=== PATIENT | male | born 1970 | race African-American/Black ===

== ENCOUNTER 2018-10-22 09:39 | Inpatient (IN) | payer OTHER ==
[2018-10-22 10:21] VITALS: BMI 32.1
--- NOTE | 2018-10-22 10:51 | HP ---
COWS - Scale Resting Pulse: 0= [place] 80 or Below Sweatin= Beads of Sweat on Face Restless Observation: 1= Difficult to Sit Still Pupil Size: 1= Pupils >than Normal Bone or Joint Aches: 2= Severe Diffuse Aches Runny Nose/ Eye Tearin= Runny Nose/Eyes GI Upset > 30mins: 1= Stomach Cramp Tremor Observation: 4= Gross Tremor/Twitching Yawning Observation: 1= 1-2x During Session Anxiety or Irritability: 2=Irritable/Anxious Goose Flesh Skin: 0=Smooth Skin (patient is appropriate for opioid detox) COWS Score: 17 CIWA Score - Admission Criteria OASAS Guidelines: Admission for Medically Managed Detox: Requires at least one of the followin. CIWA greater than 12 2. Seizures within the past 24 hours 3. Delirium tremens within the past 24 hours 4. Hallucinations within the past 24 hours 5. Acute intervention needed for co occurring medical disorder 6. Acute intervention needed for co occurring psychiatric disorder 7. Severe withdrawal that cannot be handled at a lower level of care (continued vomiting, continued diarrhea, abnormal vital signs) requiring intravenous medication and/or fluids 8. Admission ROS [facility] Chief Complaint: " I'm here to get help and start a new life. I want to sotp using drugs." Allergies/Adverse Reactions: Allergies Allergy/AdvReac Type Severity Reaction Status Date / Time No Known Allergies Allergy Verified 10/22/18 10:14 History of Present Illness: 58 year black male with history of opioid dependence. He has attempted detox and rehab at [facility] last year with very little time abstinent thereafter. He is currently intranasally about 5 bags per day. He last used yesterday night. He denies any other substance use. He denies smoking currently and stopped 20 years ago. He has no significant past medical history. PSurg Hx: None All: None Patient has no legal issues pending. Patient is domiciled in the [place]. Exam Limitations: No Limitations - Ebola screening Have you traveled outside of the country in the last 21 days: No Have you had contact with anyone from an Ebola affected area: No Have you been sick,other than usual withdrawal symptoms: No Do you have a fever: No - Review of Systems Constitutional: Chills, Diaphoresis, Loss of Appetite EENT: reports: Tearing, Nose Congestion Respiratory: reports: No Symptoms reported Cardiac: reports: No Symptoms Reported GI: reports: Nausea, Abdominal cramping : reports: No Symptoms Reported Musculoskeletal: reports: Muscle Pain Integumentary: reports: No Symptoms Reported Neuro: reports: Headache, Tremors Endocrine: reports: No Symptoms Reported Hematology: reports: No Symptoms Reported Psychiatric: reports: Judgement Intact, Mood/Affect Appropiate, Orientated x3 Other Systems: Reviewed and Negative Patient History - Patient Medical History Hx Anemia: No Hx Asthma: No Hx Chronic Obstructive Pulmonary Disease (COPD): No Hx Cancer: No Hx Cardiac Disorders: No Hx Congestive Heart Failure: No Hx Hypertension: No Hx Hypercholesterolemia: No Hx Pacemaker: No HX Cerebrovascular Accident: No Hx Seizures: No Hx Dementia: No Hx Diabetes: No Hx Gastrointestinal Disorders: No Hx Liver Disease: No Hx Genitourinary Disorders: No Hx Sexually Transmitted Disorders: No Hx Renal Disease (ESRD): No Hx Thyroid Disease: No Hx Human Immunodeficiency Virus (HIV): No Hx Hepatitis C: No Hx Depression: No Hx Suicide Attempt: No Hx Bipolar Disorder: No Hx Schizophrenia: No - Patient Surgical History Past Surgical History: No - PPD History Previous Implant?: Yes Documented Results: Negative w/o proof Implanted On Prior [facility] Admission?: No - Reproductive History Patient is a Female of Child Bearing Age (11 -55 yrs old): No - Smoking Cessation Smoking history: Former smoker Have you smoked in the past 12 months: No Hx Chewing Tobacco Use: No Initiated information on smoking cessation: No - Substance & Tx. History Hx Alcohol Use: No Hx Substance Use: Yes Substance Use Type: Heroin Hx Substance Use Treatment: Yes ([facility]) - Substances abused Heroin Substance route: Inhalation Frequency: Daily Amount used: 5 bags Age of first use: 26 Date of last use: 10/21/18 Family Disease History - Family Disease History Family Disease History: Other: Father (, gangrene), Mother (, breast cancer), Brother (13 brothers, 3 HCV 2 of them, Pneumonia), Sister (1 sister, cancer unknown), Son (1 son alive and well), Daughter (2 daughters alive and well) Admission Physical Exam BHS - Vital Signs Vital Signs: Vital Signs - 24 hr 10/22/18 10:14 Temperature 97.6 F Pulse Rate 58 L Respiratory 18 Rate Blood Pressure 155/92 - Physical General Appearance: Yes: Mild Distress HEENTM: Yes: EOMI, Hearing grossly Normal, Normocephalic, Normal Voice, ISMA, Pharynx Normal Respiratory: Yes: Chest Non-Tender, Lungs Clear, Normal Breath Sounds, No Accessory Muscle Use Neck: Yes: No masses,lesions,Nodules, Supple, Trachea in good position Breast: Yes: Within Normal Limits Cardiology: Yes: Regular Rhythm, Regular Rate, S1, S2 Abdominal: Yes: Increased Bowel Sounds, Protuberent Genitourinary: Yes: Within Normal Limits Back: Yes: Within Normal Limits, Normal Inspection Musculoskeletal: Yes: Within Normal Limits, full range of Motion, Gait Steady Extremities: Yes: Normal Capillary Refill, Normal Inspection, Normal Range of Motion, Non-Tender Neurological: Yes: 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, Fully Oriented, Alert, Motor Strength 5/5, Normal Mood/Affect Integumentary: Yes: Normal Color, Warm Lymphatic: Yes: Within Normal Limits Cleared for Admission S - Detox or Rehab [facility] Level of Care: Medically Managed Detox Regimen/Protocol: Methadone Screened but not Admitted - Documentation of Visit Screened but not Admitted: No Breathalyzer - Breathalyzer Breathalyzer: 0 Vital Signs - Vital Signs Vital signs refused: No Temperature: 97.6 F Temperature source: Oral Pulse Rate: 58 Respiratory Rate: 18 Blood Pressure: 155/92 BP Location: Left Arm Blood Pressure position: Sitting - Height Height: 6 ft 2 in - Weight Weight: 250 lb Weight measurement method: Standing scale - BMI Body Mass Index (BMI): 32.1 - Bowel Function Bowel Movement: No Urine Drug Screen - Test Device Lot number: [id number] Expiration date: 07/09/20 - Control Is test valid?: Yes - Results Drug screen NEGATIVE: No Urine drug screen results: MOP-Opiates Inpatient Rehab Admission - Rehab Decision to Admit Inpatient rehab admission?: No
[2018-10-22] MEDS ORDERED: MAGNESIUM CITRATE 300 ML BOTTLE PO PRN (10:58)
[2018-10-22] MEDS ORDERED: METHOCARBAMOL 500 MG TABLET PO PRN (10:58)
[2018-10-22] MEDS ORDERED: hydrOXYzine PAMOATE 25 MG CAPSULE (FP) PO PRN (10:58)
[2018-10-22] MEDS ORDERED: ACETAMINOPHEN 325 MG TABLET (FP) PO PRN ×2 (10:58)
[2018-10-22] MEDS ORDERED: MAG HYDROX/AL HYDROX/SIMETH 30 ML UNIT-DOSE CUP PO PRN (10:58)
[2018-10-22] MEDS ORDERED: MENTHOL/PHENOL 1 EACH UD MM PRN (10:58)
[2018-10-22] MEDS ORDERED: IBUPROFEN 400 MG TABLET (FP) PO PRN (10:58)
[2018-10-22] MEDS ORDERED: MAGNESIUM HYDROX 2400MG/30ML ORAL SUSPENSION 30 ML CUP PO PRN (10:58)
[2018-10-22] MEDS ORDERED: BISMUTH SUBSALICYLATE 524 MG/30 ML UD PO PRN (10:58)
[2018-10-22] MEDS ORDERED: METHADONE HCL 10 MG TABLET (FOR DETOX USE ONLY) PO ONE (12:00)
[2018-10-22] MEDS: cloNIDine HCL 0.1 MG TABLET PO PRN (12:24)
[2018-10-22 15:33] LABS: HEMATOCRIT 37.5 % (35.4-49); HEMOGLOBIN 12.1 GM/dL (11.7-16.9); MCH 29.3 pg (25.7-33.7); MCHC 32.2 g/dl (32.0-35.9); MEAN CELL VOLUME 91.1 fl (80-96); MEAN PLT VOLUME 9.7 fl (7.5-11.1); PLATELET COUNT 216 K/MM3 (134-434); RBC 4.12 M/mm3 (4.00-5.60); RDW 13.2 % (11.9-15.9); WHITE BLOOD COUNT 7.3 K/mm3 (4.0-10.0)
[2018-10-22 15:46] LABS: BILIRUBIN,TOTAL 0.5 mg/dL (0.2-1); BLOOD UREA NITROGEN 11.7 mg/dL (7-18); CALCIUM 9.4 mg/dL (8.5-10.1); CREATININE 0.8 mg/dL (0.55-1.3); POTASSIUM 4.2 mmol/L (3.5-5.1); TOT PROT 7.6 g/dl (6.4-8.2)
[2018-10-22] MEDS: THIAMINE HCL 100 MG TABLET (FP) PO SCH (22:32)
[2018-10-23] MEDS ORDERED: METHADONE HCL 10 MG TABLET (FOR DETOX USE ONLY) ONE (09:19)
[2018-10-23] MEDS ORDERED: METHADONE HCL 5 MG TABLET (FOR DETOX USE ONLY) ONE (09:19)
[2018-10-23] MEDS: PRENATAL VITAMINS W/ FOLIC ACID TABLET (FP) PO SCH (09:52)
[2018-10-23] MEDS ORDERED: METHADONE (DETOX) 20 MG, METHADONE (DETOX) 5 MG PO ONE (10:00)
--- NOTE | 2018-10-23 14:13 | PN ---
BHS COWS - Scale Resting Pulse: 0= [place] 80 or Below Sweatin= Chills/Flushing Restless Observation: 0= Sits Still Pupil Size: 1= Pupils >than Normal Bone or Joint Aches: 2= Severe Diffuse Aches Runny Nose/ Eye Tearin= Nasal Congestion GI Upset > 30mins: 2= Nausea/Diarrhea Tremor Observation of Outstretched Hands: 2= Slight Tremor Visible Yawning Observation: 1= 1-2x During Session Anxiety or Irritability: 2=Irritable/Anxious Goose Flesh Skin: 3=Piloerection COWS Score: 15 BHS Progress Note (SOAP) Subjective: 48 years old male admitted on 10/22/18 for acute opiate withdrawal sx management doing well with methadone detox protocol reporting that long history of diabetes II treated with metformin 200 mg po bid from [place] [facility] under[employer] mortgage loan call [facility] [phone] the pharmacist can not find the name match with date of hold metformin 200 mg po at this time continue bgm with insulin coverage change to no concentrated sugar diet discontinue regular diet Objective: 10/23/18 14:15 Vital Signs Temperature 97.6 F 10/23/18 13:32 Pulse Rate 77 10/23/18 13:32 Respiratory Rate 18 10/23/18 13:32 Blood Pressure 137/96 10/23/18 13:32 O2 Sat by Pulse Oximetry (%) Laboratory Last Values WBC 7.3 K/mm3 (4.0-10.0) 10/22/18 11:15 RBC 4.12 M/mm3 (4.00-5.60) 10/22/18 11:15 Hgb 12.1 GM/dL (11.7-16.9) 10/22/18 11:15 Hct 37.5 % (35.4-49) 10/22/18 11:15 MCV 91.1 fl (80-96) 10/22/18 11:15 MCH 29.3 pg (25.7-33.7) 10/22/18 11:15 MCHC 32.2 g/dl (32.0-35.9) 10/22/18 11:15 RDW 13.2 % (11.9-15.9) 10/22/18 11:15 Plt Count 216 K/MM3 (134-434) 10/22/18 11:15 MPV 9.7 fl (7.5-11.1) 10/22/18 11:15 Sodium 138 mmol/L (136-145) 10/22/18 11:15 Potassium 4.2 mmol/L (3.5-5.1) 10/22/18 11:15 Chloride 101 mmol/L (98-107) 10/22/18 11:15 Carbon Dioxide 31 mmol/L (21-32) 10/22/18 11:15 Anion Gap 6 MMOL/L (8-16) L 10/22/18 11:15 BUN 11.7 mg/dL (7-18) 10/22/18 11:15 Creatinine 0.8 mg/dL (0.55-1.3) 10/22/18 11:15 Est GFR (CKD-EPI)AfAm 123.29 10/22/18 11:15 Est GFR (CKD-EPI)NonAf 106.38 10/22/18 11:15 Random Glucose 164 mg/dL (74-106) H 10/22/18 11:15 Calcium 9.4 mg/dL (8.5-10.1) 10/22/18 11:15 Total Bilirubin 0.5 mg/dL (0.2-1) 10/22/18 11:15 AST 17 U/L (15-37) 10/22/18 11:15 ALT 37 U/L (13-61) 10/22/18 11:15 Alkaline Phosphatase 91 U/L (45-117) 10/22/18 11:15 Total Protein 7.6 g/dl (6.4-8.2) 10/22/18 11:15 Albumin 4.0 g/dl (3.4-5.0) 10/22/18 11:15 RPR Titer Nonreactive (NONREACTIVE) 10/22/18 11:15 lab noted fasting glucose patient is alert oriented x 3 speech clearly coherently steady gait encourage weight loss discuss importance of dietary compliance Assessment: 10/23/18 14:17 opiate withdrawal sx Plan: continue methadone detox regimen discuss 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 treatment program
[2018-10-23] MEDS ORDERED: INSULIN SLIDING SCALE (NOVOLOG) 1 VIAL SQ SCH (16:30)
[2018-10-23] MEDS: THIAMINE HCL 100 MG TABLET (FP) PO SCH (22:38)
[2018-10-24] MEDS ORDERED: METHADONE HCL 10 MG TABLET (FOR DETOX USE ONLY) PO ONE (10:00)
[2018-10-24] MEDS: PRENATAL VITAMINS W/ FOLIC ACID TABLET (FP) PO SCH (10:03)
--- NOTE | 2018-10-24 16:56 | PN ---
S COWS - Scale Resting Pulse: 0= [place] 80 or Below Sweatin= Chills/Flushing Restless Observation: 0= Sits Still Pupil Size: 1= Pupils >than Normal Bone or Joint Aches: 2= Severe Diffuse Aches Runny Nose/ Eye Tearin= Nasal Congestion GI Upset > 30mins: 1= Stomach Cramp Tremor Observation of Outstretched Hands: 2= Slight Tremor Visible Yawning Observation: 1= 1-2x During Session Anxiety or Irritability: 2=Irritable/Anxious Goose Flesh Skin: 3=Piloerection COWS Score: 14 S Progress Note (SOAP) Subjective: body aches sweating tremor anxiousness modify methadone detox regimen to meet the needs of patient's withdrawal sx Objective: 10/24/18 16:58 Vital Signs Temperature 99.0 F 10/24/18 13:46 Pulse Rate 63 10/24/18 13:46 Respiratory Rate 18 10/24/18 13:46 Blood Pressure 137/88 10/24/18 13:46 O2 Sat by Pulse Oximetry (%) Laboratory Last Values WBC 7.3 K/mm3 (4.0-10.0) 10/22/18 11:15 RBC 4.12 M/mm3 (4.00-5.60) 10/22/18 11:15 Hgb 12.1 GM/dL (11.7-16.9) 10/22/18 11:15 Hct 37.5 % (35.4-49) 10/22/18 11:15 MCV 91.1 fl (80-96) 10/22/18 11:15 MCH 29.3 pg (25.7-33.7) 10/22/18 11:15 MCHC 32.2 g/dl (32.0-35.9) 10/22/18 11:15 RDW 13.2 % (11.9-15.9) 10/22/18 11:15 Plt Count 216 K/MM3 (134-434) 10/22/18 11:15 MPV 9.7 fl (7.5-11.1) 10/22/18 11:15 Sodium 138 mmol/L (136-145) 10/22/18 11:15 Potassium 4.2 mmol/L (3.5-5.1) 10/22/18 11:15 Chloride 101 mmol/L (98-107) 10/22/18 11:15 Carbon Dioxide 31 mmol/L (21-32) 10/22/18 11:15 Anion Gap 6 MMOL/L (8-16) L 10/22/18 11:15 BUN 11.7 mg/dL (7-18) 10/22/18 11:15 Creatinine 0.8 mg/dL (0.55-1.3) 10/22/18 11:15 Est GFR (CKD-EPI)AfAm 123.29 10/22/18 11:15 Est GFR (CKD-EPI)NonAf 106.38 10/22/18 11:15 POC Glucometer 95 UNITS (80-120) 10/24/18 16:25 Random Glucose 164 mg/dL (74-106) H 10/22/18 11:15 Fasting Glucose 98 mg/dL (74-106) 10/24/18 07:00 Calcium 9.4 mg/dL (8.5-10.1) 10/22/18 11:15d Total Bilirubin 0.5 mg/dL (0.2-1) 10/22/18 11:15 AST 17 U/L (15-37) 10/22/18 11:15 ALT 37 U/L (13-61) 10/22/18 11:15 Alkaline Phosphatase 91 U/L (45-117) 10/22/18 11:15 Total Protein 7.6 g/dl (6.4-8.2) 10/22/18 11:15 Albumin 4.0 g/dl (3.4-5.0) 10/22/18 11:15 RPR Titer Nonreactive (NONREACTIVE) 10/22/18 11:15 lab noted Assessment: 10/24/18 16:58 opiate withdrawal sx alert oriented x 3 no dizziness no shortness of breath steady gait Plan: continue methadone detox regimen as per modified
[2018-10-24] MEDS: THIAMINE HCL 100 MG TABLET (FP) PO SCH (22:45)
[2018-10-24] MEDS: cloNIDine HCL 0.1 MG TABLET PO PRN (22:45)
[2018-10-25] MEDS ORDERED: METHADONE HCL 10 MG TABLET (FOR DETOX USE ONLY) ONE (08:49)
[2018-10-25] MEDS ORDERED: METHADONE HCL 5 MG TABLET (FOR DETOX USE ONLY) ONE (08:49)
[2018-10-25] MEDS ORDERED: METHADONE (DETOX) 10 MG, METHADONE (DETOX) 5 MG PO ONE ×2 (10:00)
[2018-10-25] MEDS: PRENATAL VITAMINS W/ FOLIC ACID TABLET (FP) PO SCH (10:09)
--- NOTE | 2018-10-25 15:38 | PN ---
BHS COWS - Scale Resting Pulse: 0= [place] 80 or Below Sweatin= Chills/Flushing Restless Observation: 1= Difficult to Sit Still Pupil Size: 0= Normal to Room Light Bone or Joint Aches: 2= Severe Diffuse Aches Runny Nose/ Eye Tearin= None GI Upset > 30mins: 0= None Tremor Observation of Outstretched Hands: 2= Slight Tremor Visible Yawning Observation: 1= 1-2x During Session Anxiety or Irritability: 2=Irritable/Anxious Goose Flesh Skin: 0=Smooth Skin COWS Score: 9 BHS Progress Note (SOAP) Subjective: Body Aches, Sweating, Tremors, Anxious. Patient reports That Current withdrawal / Detox Symptoms in Are Beginning To Subside in Severity. Objective: PATIENT A & O X 3. IN NO ACUTE DISTRESS. 10/25/18 15:36 Vital Signs Temperature 97.2 F L 10/25/18 14:31 Pulse Rate 64 10/25/18 14:31 Respiratory Rate 18 10/25/18 14:31 Blood Pressure 137/92 10/25/18 14:31 O2 Sat by Pulse Oximetry (%) Laboratory Tests 10/22/18 10/22/18 10/22/18 11:15 11:15 11:15 WBC 7.3 RBC 4.12 Hgb 12.1 Hct 37.5 MCV 91.1 MCH 29.3 MCHC 32.2 RDW 13.2 Plt Count 216 MPV 9.7 Sodium 138 Potassium 4.2 Chloride 101 Carbon Dioxide 31 Anion Gap 6 L BUN 11.7 Creatinine 0.8 Est GFR (CKD-EPI)AfAm 123.29 Est GFR (CKD-EPI)NonAf 106.38 POC Glucometer Random Glucose 164 H Fasting Glucose Calcium 9.4 Total Bilirubin 0.5 AST 17 ALT 37 Alkaline Phosphatase 91 Total Protein 7.6 Albumin 4.0 RPR Titer Nonreactive TB (QFT) Incubation TB Test (QFT) Nil TB Test (QFT) Mitogen TB Test (QFT) Antigen TB Test (QFT) TB Positive Criteria 10/22/18 10/23/18 10/23/18 11:15 16:34 20:40 WBC RBC Hgb Hct MCV MCH MCHC RDW Plt Count MPV Sodium Potassium Chloride Carbon Dioxide Anion Gap BUN Creatinine Est GFR (CKD-EPI)AfAm Est GFR (CKD-EPI)NonAf POC Glucometer 122 117 Random Glucose Fasting Glucose Calcium Total Bilirubin AST ALT Alkaline Phosphatase Total Protein Albumin RPR Titer TB (QFT) Incubation TB Test (QFT) Nil 0.11 TB Test (QFT) Mitogen >10.00 TB Test (QFT) Antigen 0.09 TB Test (QFT) Negative TB Positive Criteria 10/24/18 10/24/18 10/24/18 07:00 07:07 16:25 WBC RBC Hgb Hct MCV MCH MCHC RDW Plt Count MPV Sodium Potassium Chloride Carbon Dioxide Anion Gap BUN Creatinine Est GFR (CKD-EPI)AfAm Est GFR (CKD-EPI)NonAf POC Glucometer 119 95 Random Glucose Fasting Glucose 98 Calcium Total Bilirubin AST ALT Alkaline Phosphatase Total Protein Albumin RPR Titer TB (QFT) Incubation TB Test (QFT) Nil TB Test (QFT) Mitogen TB Test (QFT) Antigen TB Test (QFT) TB Positive Criteria 10/25/18 06:49 WBC RBC Hgb Hct MCV MCH MCHC RDW Plt Count MPV Sodium Potassium Chloride Carbon Dioxide Anion Gap BUN Creatinine Est GFR (CKD-EPI)AfAm Est GFR (CKD-EPI)NonAf POC Glucometer 110 Random Glucose Fasting Glucose Calcium Total Bilirubin AST ALT Alkaline Phosphatase Total Protein Albumin RPR Titer TB (QFT) Incubation TB Test (QFT) Nil TB Test (QFT) Mitogen TB Test (QFT) Antigen TB Test (QFT) TB Positive Criteria LABS NOTED. Assessment: 10/25/18 15:37 WITHDRAWAL SYMPTOMS. Plan: CONTINUE DETOX.
[2018-10-25] MEDS: THIAMINE HCL 100 MG TABLET (FP) PO SCH (22:01)
[2018-10-25] MEDS: MELATONIN 5 MG TABLETS PO PRN (22:02)
[2018-10-26] MEDS ORDERED: METHADONE HCL 5 MG TABLET (FOR DETOX USE ONLY) ONE (09:34)
[2018-10-26] MEDS ORDERED: METHADONE HCL 10 MG TABLET (FOR DETOX USE ONLY) ONE (09:34)
[2018-10-26] MEDS ORDERED: METHADONE HCL 10 MG TABLET (FOR DETOX USE ONLY) PO ONE (10:00)
[2018-10-26] MEDS ORDERED: METHADONE (DETOX) 10 MG, METHADONE (DETOX) 5 MG PO ONE (10:00)
[2018-10-26] MEDS: PRENATAL VITAMINS W/ FOLIC ACID TABLET (FP) PO SCH (10:44)
--- NOTE | 2018-10-26 14:58 | PN ---
BHS COWS - Scale Resting Pulse: 0= [place] 80 or Below Sweatin= Chills/Flushing Restless Observation: 0= Sits Still Pupil Size: 0= Normal to Room Light Bone or Joint Aches: 2= Severe Diffuse Aches Runny Nose/ Eye Tearin= None GI Upset > 30mins: 0= None Tremor Observation of Outstretched Hands: 2= Slight Tremor Visible Yawning Observation: 1= 1-2x During Session Anxiety or Irritability: 2=Irritable/Anxious Goose Flesh Skin: 0=Smooth Skin COWS Score: 8 BHS Progress Note (SOAP) Subjective: Body Aches, Sweating, Tremors. Patient reports That Current withdrawal Detox Symptoms in General Are Gradually Subsiding in Severity. Objective: PATIENT A & O X 3, OBSERVED AMBULATING ON UNIT UNASSISTED. IN NO ACUTE DISTRESS. 10/26/18 14:57 Vital Signs Temperature 97.9 F 10/26/18 09:51 Pulse Rate 70 10/26/18 09:51 Respiratory Rate 18 10/26/18 09:51 Blood Pressure 141/90 10/26/18 09:51 O2 Sat by Pulse Oximetry (%) Laboratory Tests 10/22/18 10/22/18 10/22/18 11:15 11:15 11:15 WBC 7.3 RBC 4.12 Hgb 12.1 Hct 37.5 MCV 91.1 MCH 29.3 MCHC 32.2 RDW 13.2 Plt Count 216 MPV 9.7 Sodium 138 Potassium 4.2 Chloride 101 Carbon Dioxide 31 Anion Gap 6 L BUN 11.7 Creatinine 0.8 Est GFR (CKD-EPI)AfAm 123.29 Est GFR (CKD-EPI)NonAf 106.38 POC Glucometer Random Glucose 164 H Fasting Glucose Calcium 9.4 Total Bilirubin 0.5 AST 17 ALT 37 Alkaline Phosphatase 91 Total Protein 7.6 Albumin 4.0 RPR Titer Nonreactive TB (QFT) Incubation TB Test (QFT) Nil TB Test (QFT) Mitogen TB Test (QFT) Antigen TB Test (QFT) TB Positive Criteria 10/22/18 10/23/18 10/23/18 11:15 16:34 20:40 WBC RBC Hgb Hct MCV MCH MCHC RDW Plt Count MPV Sodium Potassium Chloride Carbon Dioxide Anion Gap BUN Creatinine Est GFR (CKD-EPI)AfAm Est GFR (CKD-EPI)NonAf POC Glucometer 122 117 Random Glucose Fasting Glucose Calcium Total Bilirubin AST ALT Alkaline Phosphatase Total Protein Albumin RPR Titer TB (QFT) Incubation TB Test (QFT) Nil 0.11 TB Test (QFT) Mitogen >10.00 TB Test (QFT) Antigen 0.09 TB Test (QFT) Negative TB Positive Criteria 10/24/18 10/24/18 10/24/18 07:00 07:07 16:25 WBC RBC Hgb Hct MCV MCH MCHC RDW Plt Count MPV Sodium Potassium Chloride Carbon Dioxide Anion Gap BUN Creatinine Est GFR (CKD-EPI)AfAm Est GFR (CKD-EPI)NonAf POC Glucometer 119 95 Random Glucose Fasting Glucose 98 Calcium Total Bilirubin AST ALT Alkaline Phosphatase Total Protein Albumin RPR Titer TB (QFT) Incubation TB Test (QFT) Nil TB Test (QFT) Mitogen TB Test (QFT) Antigen TB Test (QFT) TB Positive Criteria 10/25/18 10/25/18 06:49 16:37 WBC RBC Hgb Hct MCV MCH MCHC RDW Plt Count MPV Sodium Potassium Chloride Carbon Dioxide Anion Gap BUN Creatinine Est GFR (CKD-EPI)AfAm Est GFR (CKD-EPI)NonAf POC Glucometer 110 110 Random Glucose Fasting Glucose Calcium Total Bilirubin AST ALT Alkaline Phosphatase Total Protein Albumin RPR Titer TB (QFT) Incubation TB Test (QFT) Nil TB Test (QFT) Mitogen TB Test (QFT) Antigen TB Test (QFT) TB Positive Criteria LABS NOTED. Assessment: 10/26/18 14:57 WITHDRAWAL SYMPTOMS. Plan: CONTINUE DETOX.
[2018-10-26] MEDS: THIAMINE HCL 100 MG TABLET (FP) PO SCH (22:43)
[2018-10-26] MEDS: MELATONIN 5 MG TABLETS PO PRN (23:12)
[2018-10-27] MEDS ORDERED: METHADONE HCL 5 MG TABLET (FOR DETOX USE ONLY) PO ONE (06:00)
[2018-10-27] MEDS ORDERED: METHADONE HCL 10 MG TABLET (FOR DETOX USE ONLY) PO ONE (10:00)
[2018-10-27] MEDS: PRENATAL VITAMINS W/ FOLIC ACID TABLET (FP) PO SCH (10:20)
--- NOTE | 2018-10-27 10:50 | PN ---
BHS COWS - Scale Resting Pulse: 0= [place] 80 or Below Sweatin= Chills/Flushing Restless Observation: 0= Sits Still Pupil Size: 0= Normal to Room Light Bone or Joint Aches: 1= Mild Discomfort Runny Nose/ Eye Tearin= Nasal Congestion GI Upset > 30mins: 0= None Tremor Observation of Outstretched Hands: 1= Tremor [place], Not Seen Yawning Observation: 0= None Anxiety or Irritability: 1=Feels Anxious/Irritable Goose Flesh Skin: 0=Smooth Skin COWS Score: 5 BHS Progress Note (SOAP) Subjective: 48 years old male admitted on 10/22/18 for acute opiate withdrawal sx management doing well with methadone detox regimen mild tremor less body aches denies dizziness no shortness of breathe patient does not taking metform 500 mg po bid while in detox may return to primary care provider for glucose monitoring Objective: 10/27/18 10:46 Vital Signs Temperature 98.0 F 10/27/18 09:35 Pulse Rate 73 10/27/18 09:35 Respiratory Rate 18 10/27/18 09:35 Blood Pressure 132/88 10/27/18 09:35 O2 Sat by Pulse Oximetry (%) Laboratory Last Values WBC 7.3 K/mm3 (4.0-10.0) 10/22/18 11:15 RBC 4.12 M/mm3 (4.00-5.60) 10/22/18 11:15 Hgb 12.1 GM/dL (11.7-16.9) 10/22/18 11:15 Hct 37.5 % (35.4-49) 10/22/18 11:15 MCV 91.1 fl (80-96) 10/22/18 11:15 MCH 29.3 pg (25.7-33.7) 10/22/18 11:15 MCHC 32.2 g/dl (32.0-35.9) 10/22/18 11:15 RDW 13.2 % (11.9-15.9) 10/22/18 11:15 Plt Count 216 K/MM3 (134-434) 10/22/18 11:15 MPV 9.7 fl (7.5-11.1) 10/22/18 11:15 Sodium 138 mmol/L (136-145) 10/22/18 11:15 Potassium 4.2 mmol/L (3.5-5.1) 10/22/18 11:15 Chloride 101 mmol/L (98-107) 10/22/18 11:15 Carbon Dioxide 31 mmol/L (21-32) 10/22/18 11:15 Anion Gap 6 MMOL/L (8-16) L 10/22/18 11:15 BUN 11.7 mg/dL (7-18) 10/22/18 11:15 Creatinine 0.8 mg/dL (0.55-1.3) 10/22/18 11:15 Est GFR (CKD-EPI)AfAm 123.29 10/22/18 11:15 Est GFR (CKD-EPI)NonAf 106.38 10/22/18 11:15 POC Glucometer 115 UNITS (80-120) 10/27/18 07:37 Random Glucose 164 mg/dL (74-106) H 10/22/18 11:15 Fasting Glucose 98 mg/dL (74-106) 10/24/18 07:00 Calcium 9.4 mg/dL (8.5-10.1) 10/22/18 11:15 Total Bilirubin 0.5 mg/dL (0.2-1) 10/22/18 11:15 AST 17 U/L (15-37) 10/22/18 11:15 ALT 37 U/L (13-61) 10/22/18 11:15 Alkaline Phosphatase 91 U/L (45-117) 10/22/18 11:15 Total Protein 7.6 g/dl (6.4-8.2) 10/22/18 11:15 Albumin 4.0 g/dl (3.4-5.0) 10/22/18 11:15 RPR Titer Nonreactive (NONREACTIVE) 10/22/18 11:15 TB (QFT) Incubation (.) 10/22/18 11:15 TB Test (QFT) Nil 0.11 IU/mL (.) 10/22/18 11:15 TB Test (QFT) Mitogen >10.00 IU/mL (.) 10/22/18 11:15 TB Test (QFT) Antigen 0.09 IU/mL (.) 10/22/18 11:15 TB Test (QFT) Negative (Negative) 10/22/18 11:15 TB Positive Criteria (.) 10/22/18 11:15 lab noted Assessment: 10/27/18 10:54 opiate withdrawal sx Plan: continue methadone detox
[2018-10-27] MEDS: THIAMINE HCL 100 MG TABLET (FP) PO SCH (21:41)
[2018-10-27] MEDS: MELATONIN 5 MG TABLETS PO PRN (21:41)
[2018-10-28] MEDS ORDERED: METHADONE HCL 5 MG TABLET (FOR DETOX USE ONLY) PO ONE (06:00)
[2018-10-28] MEDS: PRENATAL VITAMINS W/ FOLIC ACID TABLET (FP) PO SCH (10:08)
--- NOTE | 2018-10-28 13:58 | HP ---
ROSALEE BENJAMIN Rehab Assess/Revision - Admission History Admitted to Rehab from: [facility] Date of Admission to Rehab: 10/28/18 - Vital signs Vital Signs: Vital Signs Period Temp Pulse Resp BP Sys/Tejeda Pulse Ox Last 24 Hr 97.5 F-98.8 F 65-91 18-20 110-137/73-94 - Findings Detox History & Physical reviewed: Yes Concur with findings: Yes Comments/Additional Findings: transferred from detox to rehab admission as per protocol Inpatient Rehab Admission - Rehab Decision to Admit Inpatient rehab admission?: Yes - Initial Determination Are CD services needed?: Yes Free of communicable disease: Yes Not in need of hospitalization: Yes - Rehab Admission Criteria Previous failed treatment: Yes Poor recovery environment: Yes Comorbidities: Yes Lacks judgement: No Patient is meeting Inpatient Rehab admission criteria:: Yes
[2018-10-28] MEDS: THIAMINE HCL 100 MG TABLET (FP) PO SCH (21:48)
[2018-10-28] MEDS: MELATONIN 5 MG TABLETS PO PRN (21:48)
[2018-10-29] MEDS: PRENATAL VITAMINS W/ FOLIC ACID TABLET (FP) PO SCH (10:57)
[2018-10-29] MEDS: MELATONIN 5 MG TABLETS PO PRN (21:39)
[2018-10-29] MEDS: THIAMINE HCL 100 MG TABLET (FP) PO SCH (21:39)
[2018-10-30] MEDS: PRENATAL VITAMINS W/ FOLIC ACID TABLET (FP) PO SCH (10:26)
[2018-10-30] MEDS: MELATONIN 5 MG TABLETS PO PRN (21:38)
[2018-10-30] MEDS: THIAMINE HCL 100 MG TABLET (FP) PO SCH (21:38)
--- NOTE | 2018-10-31 09:55 | PN ---
[facility] Progress Note Note: Vital Signs Temperature 98.6 F 10/30/18 07:08 Pulse Rate 75 10/30/18 07:08 Respiratory Rate 18 10/31/18 03:30 Blood Pressure 127/81 10/30/18 07:08 O2 Sat by Pulse Oximetry (%) Patient with hx of schizo, reported to counselor prior to admission was in ED was due for haldol IM inj and patient had refused treatment . psych eval requested for further assessment continue to monitor
[2018-10-31] MEDS: PRENATAL VITAMINS W/ FOLIC ACID TABLET (FP) PO SCH (10:45)
[2018-10-31] MEDS: MELATONIN 5 MG TABLETS PO PRN (21:34)
[2018-10-31] MEDS: THIAMINE HCL 100 MG TABLET (FP) PO SCH (21:35)
--- NOTE | 2018-11-01 09:03 | CONSULT ---
[facility] Psychiatric Consult - Data Date of interview: 11/01/18 Admission source: 3N Identifying data: Mr Hill is a 48 years old Black male, father of 3 children, unemployed receiving SSD, living with seeking rehab treatment for opioid Substance Abuse History: Reports history of heroin use. Refer to addiction counselor's summary for further information Medical History: Significant for diabetes mellitus. Psychiatric History: Reports that his first psychiatric contact was in 1991 when he was admitted to [facility] in [place], [place], diagnosed with Schizophrenia and started on psychotropic medications. Since then he has not had any further psychiatric hospitalizations but has had numerous ED visits for auditory hallucinations and suicidal ideations mainly in the context of drug use. Most recently, he was admitted to [facility] overnight for observation on 10/21/18. There he was given medication which he believes was Haldol and referred to this facility for inpatient detox. Reports chronic non adherence to OPD care and medications. Told specifications writer that he never follows up with discharge instructions after admissions to ED. Denies previous suicidal attempt. At present, reports experiencing psychotic symptoms, S/H ideations. However, reports sleeping poorly. Requests to resume psychotropic medication Physical/Sexual Abuse/Trauma History: Denies history of emotional, physical or sexual abuse as well as DV relationdhip. no service Additional Comment: Reports history of multiple previous arrests including one felony conviction. denie being on parole/probation at present Mental Status Exam - Mental Status Exam Alert and Oriented to: Time, Place, Person Cognitive Function: Fair Patient Appearance: Well Groomed Mood: Hopeful, Euthymic Patient Behavior: Cooperative Speech Pattern: Clear Voice Loudness: Normal Thought Process: Intact Thought Disorder: Not Present Hallucinations: None Suicidal Ideation: Denies Homicidal Ideation: Denies Insight/Judgement: Fair Sleep: Poorly Appetite: Good Muscle strength/Tone: Normal Gait/Station: Normal Psychiatric Findings - Problem List ([place] 1, 2,3) (1) Schizophrenia Current Visit: Yes Status: Chronic (2) Substance-induced sleep disorder Current Visit: Yes Status: Acute (3) Opioid dependence Current Visit: Yes Status: Acute (4) Diabetes mellitus type II, controlled, with no complications Current Visit: Yes Status: Chronic - Initial Treatment Plan Initial Treatment Plan: 1) Start Risperdal 1 mg po BID. 2) Continue inpatient detoxification
[2018-11-01] MEDS: PRENATAL VITAMINS W/ FOLIC ACID TABLET (FP) PO SCH (10:42)
[2018-11-01] MEDS: risperiDONE 1 MG TABLET (FP) PO SCH ×2 (10:42→21:25)
[2018-11-01] MEDS: MELATONIN 5 MG TABLETS PO PRN (21:23)
[2018-11-01] MEDS: THIAMINE HCL 100 MG TABLET (FP) PO SCH (21:23)
[2018-11-02] MEDS: PRENATAL VITAMINS W/ FOLIC ACID TABLET (FP) PO SCH (10:03)
[2018-11-02] MEDS: risperiDONE 1 MG TABLET (FP) PO SCH ×2 (10:03→23:15)
[2018-11-02] MEDS: MELATONIN 5 MG TABLETS PO PRN (23:15)
[2018-11-02] MEDS: THIAMINE HCL 100 MG TABLET (FP) PO SCH (23:15)
[2018-11-03] MEDS: risperiDONE 1 MG TABLET (FP) PO SCH ×2 (10:04→21:30)
[2018-11-03] MEDS: PRENATAL VITAMINS W/ FOLIC ACID TABLET (FP) PO SCH (10:04)
[2018-11-03] MEDS: MELATONIN 5 MG TABLETS PO PRN (21:30)
[2018-11-03] MEDS: THIAMINE HCL 100 MG TABLET (FP) PO SCH (21:30)
[2018-11-04] MEDS: risperiDONE 1 MG TABLET (FP) PO SCH (10:10)
[2018-11-04] MEDS: PRENATAL VITAMINS W/ FOLIC ACID TABLET (FP) PO SCH (10:10)
[2018-11-04] MEDS ORDERED: HALOPERIDOL 5 MG TABLET (FP) PO PRN (11:03)
--- NOTE | 2018-11-04 11:08 | PN ---
[facility] Progress Note Note: Patient reports feeling drowsy and attribute symptom to Risperdal that he just started on 11/01/18. Claims that recently while in [place] ED he was prescribed Haldol. Will discontinue Risperdal i mg/bid and start Haldol 5 mg/hs
[2018-11-04] MEDS: MELATONIN 5 MG TABLETS PO PRN (21:01)
[2018-11-04] MEDS: HALOPERIDOL 5 MG TABLET (FP) PO SCH (21:01)
[2018-11-05] MEDS: PRENATAL VITAMINS W/ FOLIC ACID TABLET (FP) PO SCH (10:23)
[2018-11-05] MEDS: HALOPERIDOL 5 MG TABLET (FP) PO SCH (21:42)
[2018-11-05] MEDS: THIAMINE HCL 100 MG TABLET (FP) PO SCH (21:43)
[2018-11-06] MEDS: PRENATAL VITAMINS W/ FOLIC ACID TABLET (FP) PO SCH (10:12)
[2018-11-06] MEDS: THIAMINE HCL 100 MG TABLET (FP) PO SCH (21:34)
[2018-11-06] MEDS: HALOPERIDOL 5 MG TABLET (FP) PO SCH (21:35)
[2018-11-07 07:46] VITALS: BP 135/99; PULSE 81; TEMP 97.7
--- NOTE | 2018-11-07 08:39 | DS ---
[facility] Rehab Discharge Summary - [facility] Rehab Discharge Summary Admission Date: 10/22/18 Discharge Date: 11/07/18 - History Present History: Opioid dependence Additional Comments: Pt is a 48 y/o male and completed rehab for heroin use disorder after detox treatment. Pt participated in rehab activities during stay. Pertinent Past History: PMHx:Obesity; ??DM-No meds PsyHx:Schizophrenia - Discharge Physical Exam Vital Signs: Vital Signs Temperature 97.7 F 11/07/18 07:46 Pulse Rate 81 11/07/18 07:46 Respiratory Rate 18 11/07/18 07:46 Blood Pressure 135/99 11/07/18 07:46 O2 Sat by Pulse Oximetry (%) Alert o x 3. NAD Extremities/Skin:FROM;Ambulates with steady gait. Pertinent Admission Physical Exam Findings: Laboratory Tests 10/22/18 10/22/18 10/22/18 11:15 11:15 11:15 WBC 7.3 RBC 4.12 Hgb 12.1 Hct 37.5 MCV 91.1 MCH 29.3 MCHC 32.2 RDW 13.2 Plt Count 216 MPV 9.7 Sodium 138 Potassium 4.2 Chloride 101 Carbon Dioxide 31 Anion Gap 6 L BUN 11.7 Creatinine 0.8 Est GFR (CKD-EPI)AfAm 123.29 Est GFR (CKD-EPI)NonAf 106.38 POC Glucometer Random Glucose 164 H Fasting Glucose Calcium 9.4 Total Bilirubin 0.5 AST 17 ALT 37 Alkaline Phosphatase 91 Total Protein 7.6 Albumin 4.0 RPR Titer Nonreactive TB (QFT) Incubation TB Test (QFT) Nil TB Test (QFT) Mitogen TB Test (QFT) Antigen TB Test (QFT) TB Positive Criteria 10/22/18 10/23/18 10/23/18 11:15 16:34 20:40 WBC RBC Hgb Hct MCV MCH MCHC RDW Plt Count MPV Sodium Potassium Chloride Carbon Dioxide Anion Gap BUN Creatinine Est GFR (CKD-EPI)AfAm Est GFR (CKD-EPI)NonAf POC Glucometer 122 117 Random Glucose Fasting Glucose Calcium Total Bilirubin AST ALT Alkaline Phosphatase Total Protein Albumin RPR Titer TB (QFT) Incubation TB Test (QFT) Nil 0.11 TB Test (QFT) Mitogen >10.00 TB Test (QFT) Antigen 0.09 TB Test (QFT) Negative TB Positive Criteria 10/24/18 10/24/18 10/24/18 07:00 07:07 16:25 WBC RBC Hgb Hct MCV MCH MCHC RDW Plt Count MPV Sodium Potassium Chloride Carbon Dioxide Anion Gap BUN Creatinine Est GFR (CKD-EPI)AfAm Est GFR (CKD-EPI)NonAf POC Glucometer 119 95 Random Glucose Fasting Glucose 98 Calcium Total Bilirubin AST ALT Alkaline Phosphatase Total Protein Albumin RPR Titer TB (QFT) Incubation TB Test (QFT) Nil TB Test (QFT) Mitogen TB Test (QFT) Antigen TB Test (QFT) TB Positive Criteria 10/25/18 10/25/18 10/26/18 06:49 16:37 16:32 WBC RBC Hgb Hct MCV MCH MCHC RDW Plt Count MPV Sodium Potassium Chloride Carbon Dioxide Anion Gap BUN Creatinine Est GFR (CKD-EPI)AfAm Est GFR (CKD-EPI)NonAf POC Glucometer 110 110 87 Random Glucose Fasting Glucose Calcium Total Bilirubin AST ALT Alkaline Phosphatase Total Protein Albumin RPR Titer TB (QFT) Incubation TB Test (QFT) Nil TB Test (QFT) Mitogen TB Test (QFT) Antigen TB Test (QFT) TB Positive Criteria 10/27/18 10/27/18 10/28/18 07:37 16:29 06:25 WBC RBC Hgb Hct MCV MCH MCHC RDW Plt Count MPV Sodium Potassium Chloride Carbon Dioxide Anion Gap BUN Creatinine Est GFR (CKD-EPI)AfAm Est GFR (CKD-EPI)NonAf POC Glucometer 115 90 96 Random Glucose Fasting Glucose Calcium Total Bilirubin AST ALT Alkaline Phosphatase Total Protein Albumin RPR Titer TB (QFT) Incubation TB Test (QFT) Nil TB Test (QFT) Mitogen TB Test (QFT) Antigen TB Test (QFT) TB Positive Criteria 10/28/18 10/29/18 10/29/18 16:58 06:51 16:54 WBC RBC Hgb Hct MCV MCH MCHC RDW Plt Count MPV Sodium Potassium Chloride Carbon Dioxide Anion Gap BUN Creatinine Est GFR (CKD-EPI)AfAm Est GFR (CKD-EPI)NonAf POC Glucometer 93 102 78 Random Glucose Fasting Glucose Calcium Total Bilirubin AST ALT Alkaline Phosphatase Total Protein Albumin RPR Titer TB (QFT) Incubation TB Test (QFT) Nil TB Test (QFT) Mitogen TB Test (QFT) Antigen TB Test (QFT) TB Positive Criteria 10/30/18 10/31/18 11/01/18 16:54 16:48 16:30 WBC RBC Hgb Hct MCV MCH MCHC RDW Plt Count MPV Sodium Potassium Chloride Carbon Dioxide Anion Gap BUN Creatinine Est GFR (CKD-EPI)AfAm Est GFR (CKD-EPI)NonAf POC Glucometer 66 113 86 Random Glucose Fasting Glucose Calcium Total Bilirubin AST ALT Alkaline Phosphatase Total Protein Albumin RPR Titer TB (QFT) Incubation TB Test (QFT) Nil TB Test (QFT) Mitogen TB Test (QFT) Antigen TB Test (QFT) TB Positive Criteria 11/02/18 11/03/18 11/04/18 16:55 16:41 16:44 WBC RBC Hgb Hct MCV MCH MCHC RDW Plt Count MPV Sodium Potassium Chloride Carbon Dioxide Anion Gap BUN Creatinine Est GFR (CKD-EPI)AfAm Est GFR (CKD-EPI)NonAf POC Glucometer 93 88 108 Random Glucose Fasting Glucose Calcium Total Bilirubin AST ALT Alkaline Phosphatase Total Protein Albumin RPR Titer TB (QFT) Incubation TB Test (QFT) Nil TB Test (QFT) Mitogen TB Test (QFT) Antigen TB Test (QFT) TB Positive Criteria - Treatment Discharge Condition: Discharge condition good Hospital Course: Rehabilitated safely, responded well to treatment with participation to rehab activities; Accepted rehab referral. - Medication Discharge Medications: Ambulatory Orders NK [No Known Home Medication] 10/28/18 - Medication-Assisted Treatment (MAT) Medication-Assisted Treatment (MAT): No - Discharge Instructions Diet, activity, other medical instructions: Diet:No Concentrated sweets Activity: OOB, as Tolerated Other medical instructions:Follow up with primary care with Dr. Felicita Hollingsworth at [facility] on 11/20/18 @ 1:00 pm. - Diagnosis (1) Obesity (BMI 30.0-34.9) Status: Chronic (2) Opioid dependence Status: Chronic Qualifiers: Substance use status: uncomplicated Qualified Code(s): F11.20 - Opioid dependence, uncomplicated (3) Elevated blood sugar level Status: Acute - Follow-up Referral Minutes to complete discharge: 20 - AMA Did Patient Leave Against Medical Advice: No
== END 2018-11-07 07:30 | disposition home or self-care (01) | DRG 895 ==
LOC: YASAS 09:39 → Y3N 11:27 → Y5N 10-28 13:03
PROVIDERS: ADMIT Surgery; ATTEND Surgery
PROC: HZ2ZZZZ Detoxification Services for Substance Abuse Treatment (ICD-10-PCS; principal; 2018-10-22)
PROC: HZ42ZZZ Group Counseling for Substance Abuse Treatment, Cognitive-Behavioral (ICD-10-PCS; 2018-10-28)
DX: F11.23 Opioid dependence with withdrawal (principal); F20.0 Paranoid schizophrenia; F19.282 Other psychoactive substance dependence with psychoactive substance-induced sleep disorder; E11.9 Type 2 diabetes mellitus without complications; E66.9 Obesity, unspecified; Z68.32 Body mass index [BMI] 32.0-32.9, adult; Z87.891 Personal history of nicotine dependence
CPT/HCPCS: 36415; 80053; 82947; 82962; 85027; 86480; 86593; J0735; J2794

== ENCOUNTER 2018-12-31 13:44 | Inpatient (IN) | payer OTHER ==
[2018-12-31 15:32] VITALS: BMI 30.8
--- NOTE | 2018-12-31 16:33 | HP ---
COWS - Scale Resting Pulse: 0= [place] 80 or Below Sweatin=Flushed/Facial Moisture Restless Observation: 1= Difficult to Sit Still Pupil Size: 0= Normal to Room Light Bone or Joint Aches: 2= Severe Diffuse Aches Runny Nose/ Eye Tearin= Runny Nose/Eyes GI Upset > 30mins: 2= Nausea/Diarrhea Tremor Observation: 1= Tremor [place], Not Seen Yawning Observation: 1= 1-2x During Session Anxiety or Irritability: 2=Irritable/Anxious Goose Flesh Skin: 0=Smooth Skin COWS Score: 13 CIWA Score - Admission Criteria OASAS Guidelines: Admission for Medically Managed Detox: Requires at least one of the followin. CIWA greater than 12 2. Seizures within the past 24 hours 3. Delirium tremens within the past 24 hours 4. Hallucinations within the past 24 hours 5. Acute intervention needed for co occurring medical disorder 6. Acute intervention needed for co occurring psychiatric disorder 7. Severe withdrawal that cannot be handled at a lower level of care (continued vomiting, continued diarrhea, abnormal vital signs) requiring intravenous medication and/or fluids 8. Admitting History and Physical - Smoking History Smoking history: Former smoker Have you smoked in the past 12 months: No If you are a former smoker, when did you quit?: 20 yrs ago - Alcohol/Substance Use Hx Alcohol Use: No Admission ROS [facility] - [facility] Chief Complaint: Detox heroin/alcohol Allergies/Adverse Reactions: Allergies Allergy/AdvReac Type Severity Reaction Status Date / Time No Known Allergies Allergy Verified 12/31/18 15:26 History of Present Illness: 48 year old male with a history of opioid and alcohol dependence presents for detox from heroin and alcohol. Was here back in October for both detox/rehab. Reports being clean for 1 month before relapse. Was in methadone program years ago. 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 Family: lives with ; 1 son 14 years old 2 daughter, close with children - Ebola screening Have you traveled outside of the country in the last 21 days: No Have you had contact with anyone from an Ebola affected area: No Do you have a fever: No - Review of Systems Constitutional: No Symptoms Reported EENT: reports: No Symptoms Reported Respiratory: reports: No Symptoms reported Cardiac: reports: No Symptoms Reported GI: reports: No Symptoms Reported : reports: No Symptoms Reported Musculoskeletal: reports: Back Pain Integumentary: reports: No Symptoms Reported Neuro: reports: No Symptoms reported Endocrine: reports: No Symptoms Reported Hematology: reports: No Symptoms Reported Psychiatric: reports: Judgement Intact, Mood/Affect Appropiate, Orientated x3 Patient History - Patient Medical History Hx Anemia: No Hx Asthma: No Hx Chronic Obstructive Pulmonary Disease (COPD): No Hx Cancer: No Hx Cardiac Disorders: No Hx Congestive Heart Failure: No Hx Hypertension: No Hx Hypercholesterolemia: No Hx Pacemaker: No HX Cerebrovascular Accident: No Hx Seizures: No Hx Dementia: No Hx Diabetes: No Hx Gastrointestinal Disorders: No Hx Liver Disease: No Hx Genitourinary Disorders: No Hx Sexually Transmitted Disorders: No (Denies) Hx Renal Disease (ESRD): No Hx Thyroid Disease: No Hx Human Immunodeficiency Virus (HIV): No Hx Hepatitis C: No Hx Depression: No Hx Suicide Attempt: No Hx Bipolar Disorder: No Hx Schizophrenia: No - Patient Surgical History Past Surgical History: No Hx Neurologic Surgery: No Hx Cataract Extraction: No Hx Cardiac Surgery: No Hx Lung Surgery: No Hx Breast Surgery: No Hx Breast Biopsy: No Hx Abdominal Surgery: No Hx Appendectomy: No Hx Cholecystectomy: No Hx Genitourinary Surgery: No Hx Section: No Hx Orthopedic Surgery: No Anesthesia Reaction: No - PPD History Results: QFT- Negative - Smoking Cessation Smoking history: Former smoker Have you smoked in the past 12 months: No If you are a former smoker, when did you quit?: 20 yrs ago Hx Chewing Tobacco Use: No Initiated information on smoking cessation: Yes 'Breaking Loose' booklet given: 12/31/18 - Substances abused Heroin Substance route: Inhalation Frequency: Daily Amount used: 7 bags Age of first use: 26 Date of last use: 12/31/18 Alcohol Substance route: Oral Frequency: 1-2 times per week Amount used: 40 OZ Age of first use: 26 Date of last use: 12/28/18 Admission Physical Exam BHS - Vital Signs Vital Signs: Vital Signs - 24 hr 10/22/19 15:27 Temperature 97.4 F L Pulse Rate 71 Respiratory 18 Rate Blood Pressure 131/89 - Physical General Appearance: Yes: No Apparent Distress HEENTM: Yes: Normocephalic Respiratory: Yes: Chest Non-Tender, Lungs Clear, Normal Breath Sounds Breast: Yes: Within Normal Limits Cardiology: Yes: Regular Rhythm, Regular Rate Abdominal: Yes: Normal Bowel Sounds, Non Tender, Flat, Soft Extremities: Yes: Normal Capillary Refill, Normal Range of Motion, Non-Tender Neurological: Yes: pan shaker II-XII NML intact, Fully Oriented, Alert, Motor Strength 5/5, Normal Mood/Affect Integumentary: Yes: Normal Color, Dry, Warm - Diagnostic (1) Opioid dependence Current Visit: No Status: Chronic Qualifiers: Substance use status: uncomplicated Qualified Code(s): F11.20 - Opioid dependence, uncomplicated Cleared for Admission [facility] - Detox or Rehab [facility] Level of Care: Medically Managed Breathalyzer - Breathalyzer Breathalyzer: 0 Urine Drug Screen - Test Device Lot number: [id number] Expiration date: 09/08/20 - Control Is test valid?: Yes - Results Drug screen NEGATIVE: Yes Urine drug screen results: DEVON-Cocaine, FEN-Fentanyl, MOP-Opiates, MTD-Methadone , BZO-Benzodiazepines Inpatient Rehab Admission - Rehab Decision to Admit Inpatient rehab admission?: No
[2018-12-31] MEDS ORDERED: cloNIDine HCL 0.1 MG TABLET PO PRN (17:25)
[2018-12-31] MEDS ORDERED: MAGNESIUM HYDROX 2400MG/30ML ORAL SUSPENSION 30 ML CUP PO PRN (17:25)
[2018-12-31] MEDS ORDERED: MENTHOL/PHENOL 1 EACH UD MM PRN (17:25)
[2018-12-31] MEDS ORDERED: hydrOXYzine PAMOATE 25 MG CAPSULE (FP) PO PRN (17:25)
[2018-12-31] MEDS ORDERED: METHOCARBAMOL 500 MG TABLET PO PRN (17:25)
[2018-12-31] MEDS ORDERED: ACETAMINOPHEN 325 MG TABLET (FP) PO PRN ×2 (17:25)
[2018-12-31] MEDS ORDERED: BISMUTH SUBSALICYLATE 524 MG/30 ML UD PO PRN (17:25)
[2018-12-31] MEDS ORDERED: IBUPROFEN 400 MG TABLET (FP) PO PRN (17:25)
[2018-12-31] MEDS ORDERED: MAGNESIUM CITRATE 300 ML BOTTLE PO PRN (17:25)
[2018-12-31] MEDS ORDERED: MAG HYDROX/AL HYDROX/SIMETH 30 ML UNIT-DOSE CUP PO PRN (17:25)
--- NOTE | 2018-12-31 18:08 | PN ---
Teaching Attending Note Name of Resident: Checo Dubose ATTENDING PHYSICIAN STATEMENT I saw and evaluated the patient. I reviewed the resident's note and discussed the case with the resident. I agree with the resident's findings and plan as documented. SUBJECTIVE: 48 year old male with a history of opioid and alcohol use , reports 4 bags of heroin per day via inhalation ,latest use today current symptoms as above. Denies OD , w/d seizures. Alcohol: 40oz of alcohol per week, latest use 3 days ago . OBJECTIVE: wnwd Vital Signs - 24 hr 12/31/18 15:27 Temperature 97.4 F L Pulse Rate 71 Respiratory 18 Rate Blood Pressure 131/89 ASSESSMENT AND PLAN: OUD - Methadone taper .
[2018-12-31] MEDS ORDERED: METHADONE HCL 5 MG TABLET (FOR DETOX USE ONLY) PO ONE (18:30)
[2018-12-31] MEDS: THIAMINE HCL 100 MG TABLET (FP) PO SCH (22:18)
[2018-12-31] MEDS: MELATONIN 5 MG TABLETS PO PRN (22:18)
[2019-01-01 09:44] LABS: HEMATOCRIT 39.4 % (35.4-49); HEMOGLOBIN 12.7 GM/dL (11.7-16.9); MCH 29.2 pg (25.7-33.7); MCHC 32.3 g/dl (32.0-35.9); MEAN CELL VOLUME 90.6 fl (80-96); PLATELET COUNT 205 K/MM3 (134-434); RBC 4.35 M/mm3 (4.00-5.60); RDW 13.5 % (11.9-15.9); WHITE BLOOD COUNT 8.4 K/mm3 (4.0-10.0)
[2019-01-01] MEDS ORDERED: METHADONE HCL 10 MG TABLET (FOR DETOX USE ONLY) PO ONE (10:00)
[2019-01-01 10:25] LABS: ALBUMIN 3.6 g/dl (3.4-5.0); BILIRUBIN,TOTAL 0.3 mg/dL (0.2-1); BLOOD UREA NITROGEN 20.6 mg/dL (7-18); CALCIUM 8.7 mg/dL (8.5-10.1); CREATININE 0.8 mg/dL (0.55-1.3); POTASSIUM 4.4 mmol/L (3.5-5.1); TOT PROT 6.5 g/dl (6.4-8.2)
[2019-01-01] MEDS: PRENATAL VITAMINS W/ FOLIC ACID TABLET (FP) PO SCH (10:25)
[2019-01-01] MEDS ORDERED: FLU VACCINE QUAD 60 MCG/0.5 ML (MDV 19-20) IM ONE (12:00)
--- NOTE | 2019-01-01 12:12 | PN ---
[facility] COWS - Scale Resting Pulse: 0= [place] 80 or Below Sweatin= No chills or Flushing Restless Observation: 1= Difficult to Sit Still Pupil Size: 1= Pupils >than Normal Bone or Joint Aches: 1= Mild Discomfort Runny Nose/ Eye Tearin= Nasal Congestion GI Upset > 30mins: 1= Stomach Cramp Tremor Observation of Outstretched Hands: 2= Slight Tremor Visible Yawning Observation: 1= 1-2x During Session Anxiety or Irritability: 2=Irritable/Anxious Goose Flesh Skin: 0=Smooth Skin COWS Score: 10 BHS Progress Note (SOAP) Subjective: alert,irritable,anxious,interrupted sleep,pain in the body and back Objective: 01/01/19 12:06 Vital Signs Temperature 98.4 F 01/01/19 09:13 Pulse Rate 67 01/01/19 09:13 Respiratory Rate 16 01/01/19 09:13 Blood Pressure 116/82 01/01/19 09:13 O2 Sat by Pulse Oximetry (%) 01/01/19 12:06 Laboratory Last Values WBC 8.4 K/mm3 (4.0-10.0) 01/01/19 08:15 RBC 4.35 M/mm3 (4.00-5.60) 01/01/19 08:15 Hgb 12.7 GM/dL (11.7-16.9) 01/01/19 08:15 Hct 39.4 % (35.4-49) 01/01/19 08:15 MCV 90.6 fl (80-96) 01/01/19 08:15 MCH 29.2 pg (25.7-33.7) 01/01/19 08:15 MCHC 32.3 g/dl (32.0-35.9) 01/01/19 08:15 RDW 13.5 % (11.9-15.9) 01/01/19 08:15 Plt Count 205 K/MM3 (134-434) 01/01/19 08:15 MPV 10.0 fl (7.5-11.1) 01/01/19 08:15 Sodium 138 mmol/L (136-145) 01/01/19 08:15 Potassium 4.4 mmol/L (3.5-5.1) 01/01/19 08:15 Chloride 104 mmol/L (98-107) 01/01/19 08:15 Carbon Dioxide 28 mmol/L (21-32) 01/01/19 08:15 Anion Gap 6 MMOL/L (8-16) L 01/01/19 08:15 BUN 20.6 mg/dL (7-18) H 01/01/19 08:15 Creatinine 0.8 mg/dL (0.55-1.3) 01/01/19 08:15 Est GFR (CKD-EPI)AfAm 123.29 01/01/19 08:15 Est GFR (CKD-EPI)NonAf 106.38 01/01/19 08:15 Random Glucose 105 mg/dL (74-106) 01/01/19 08:15 Calcium 8.7 mg/dL (8.5-10.1) 01/01/19 08:15 Total Bilirubin 0.3 mg/dL (0.2-1) 01/01/19 08:15 AST 10 U/L (15-37) L 01/01/19 08:15 ALT 20 U/L (13-61) 01/01/19 08:15 Alkaline Phosphatase 84 U/L (45-117) 01/01/19 08:15 Total Protein 6.5 g/dl (6.4-8.2) 01/01/19 08:15 Albumin 3.6 g/dl (3.4-5.0) 01/01/19 08:15 RPR Titer Nonreactive (NONREACTIVE) 01/01/19 08:15 Assessment: 01/01/19 12:13 withdrawal symptom Plan: continue detox methadone regimen,patient would like to have hepatitis c test
[2019-01-01] MEDS: MELATONIN 5 MG TABLETS PO PRN (22:08)
[2019-01-01] MEDS: THIAMINE HCL 100 MG TABLET (FP) PO SCH (22:08)
--- NOTE | 2019-01-02 08:51 | DS ---
[facility] Detox Discharge Summary Admission Date: 12/31/18 Discharge Date: 01/02/19 - History Present History: Opioid Dependence - Physical Exam Results Vital Signs: Vital Signs Temperature 97.7 F 01/02/19 06:35 Pulse Rate 60 01/02/19 06:35 Respiratory Rate 20 01/02/19 06:35 Blood Pressure 137/88 01/02/19 06:35 O2 Sat by Pulse Oximetry (%) Pertinent Admission Physical Exam Findings: pt arrived in withdrawals Vital Signs Temperature 97.7 F 01/02/19 06:35 Pulse Rate 60 01/02/19 06:35 Respiratory Rate 20 01/02/19 06:35 Blood Pressure 137/88 01/02/19 06:35 O2 Sat by Pulse Oximetry (%) Laboratory Tests 01/01/19 01/01/19 01/01/19 08:15 08:15 08:15 WBC 8.4 RBC 4.35 Hgb 12.7 Hct 39.4 MCV 90.6 MCH 29.2 MCHC 32.3 RDW 13.5 Plt Count 205 MPV 10.0 Sodium 138 Potassium 4.4 Chloride 104 Carbon Dioxide 28 Anion Gap 6 L BUN 20.6 H Creatinine 0.8 Est GFR (CKD-EPI)AfAm 123.29 Est GFR (CKD-EPI)NonAf 106.38 Random Glucose 105 Calcium 8.7 Total Bilirubin 0.3 AST 10 L ALT 20 Alkaline Phosphatase 84 Total Protein 6.5 Albumin 3.6 RPR Titer Nonreactive today pt is aaox3 ambulating no acute distress no withdrawals noted - Treatment Hospital Course: Detox Protocol Followed, Detoxed Safely, Responded well, Discharged Condition Good, Rehab Referral Accepted Patient has Accepted a Rehab Referral to: referred to [facility] rehab - Medication Discharge Medications: Ambulatory Orders NK [No Known Home Medication] 10/28/18 - Diagnosis (1) Elevated blood sugar level Current Visit: No Status: Acute (2) Substance-induced sleep disorder Current Visit: No Status: Acute (3) Diabetes mellitus type II, controlled, with no complications Current Visit: No Status: Chronic (4) Obesity (BMI 30.0-34.9) Current Visit: No Status: Chronic (5) Opioid dependence Current Visit: Yes Status: Chronic Qualifiers: Substance use status: uncomplicated Qualified Code(s): F11.20 - Opioid dependence, uncomplicated (6) Schizophrenia Current Visit: No Status: Chronic - AMA Did Patient Leave Against Medical Advice: No
[2019-01-02] MEDS ORDERED: METHADONE HCL 5 MG TABLET (FOR DETOX USE ONLY) PO ONE (10:00)
[2019-01-02] MEDS: PRENATAL VITAMINS W/ FOLIC ACID TABLET (FP) PO SCH (10:07)
[2019-01-02] MEDS: MELATONIN 5 MG TABLETS PO PRN (21:47)
[2019-01-02] MEDS: THIAMINE HCL 100 MG TABLET (FP) PO SCH (21:47)
[2019-01-03] MEDS: PRENATAL VITAMINS W/ FOLIC ACID TABLET (FP) PO SCH (11:06)
[2019-01-03] MEDS ORDERED: PNEUMOCOCCAL 23 VACCINE 0.5 ML VIAL IM ONE (12:00)
[2019-01-03] MEDS ORDERED: PNEUMOC 13-VAL CONJ-DIP CRM/PF 0.5 ML DISP.SYRIN IM ONE (12:30)
[2019-01-03] MEDS: THIAMINE HCL 100 MG TABLET (FP) PO SCH (21:52)
[2019-01-03] MEDS: MELATONIN 5 MG TABLETS PO PRN (21:52)
[2019-01-04] MEDS: PRENATAL VITAMINS W/ FOLIC ACID TABLET (FP) PO SCH (10:03)
[2019-01-04] MEDS: THIAMINE HCL 100 MG TABLET (FP) PO SCH (21:44)
[2019-01-04] MEDS: MELATONIN 5 MG TABLETS PO PRN (21:44)
[2019-01-05] MEDS: PRENATAL VITAMINS W/ FOLIC ACID TABLET (FP) PO SCH (10:09)
[2019-01-05] MEDS: THIAMINE HCL 100 MG TABLET (FP) PO SCH (21:43)
[2019-01-05] MEDS: MELATONIN 5 MG TABLETS PO PRN (21:43)
[2019-01-06] MEDS: PRENATAL VITAMINS W/ FOLIC ACID TABLET (FP) PO SCH (10:47)
--- NOTE | 2019-01-06 11:47 | PN ---
[facility] Progress Note Note: Pt reports he has a hx of Hep C positive results with his provider at [facility] @ [address] [place] [address]/Casmalia Seth Felipe but requested another one here while in detox. Pt reports he did not inform provider in detox his previous results and just wanted to recheck test. Screening was done and result is below: Laboratory Tests 01/01/19 01/01/19 01/01/19 08:15 08:15 08:15 WBC 8.4 RBC 4.35 Hgb 12.7 Hct 39.4 MCV 90.6 MCH 29.2 MCHC 32.3 RDW 13.5 Plt Count 205 MPV 10.0 Sodium 138 Potassium 4.4 Chloride 104 Carbon Dioxide 28 Anion Gap 6 L BUN 20.6 H Creatinine 0.8 Est GFR (CKD-EPI)AfAm 123.29 Est GFR (CKD-EPI)NonAf 106.38 Random Glucose 105 Calcium 8.7 Total Bilirubin 0.3 AST 10 L ALT 20 Alkaline Phosphatase 84 Total Protein 6.5 Albumin 3.6 RPR Titer Nonreactive Hep C Ab Diagnostic HCV RNA PCR w/Genot Rflx Liver Fibrosis Interp 01/01/19 12:10 WBC RBC Hgb Hct MCV MCH MCHC RDW Plt Count MPV Sodium Potassium Chloride Carbon Dioxide Anion Gap BUN Creatinine Est GFR (CKD-EPI)AfAm Est GFR (CKD-EPI)NonAf Random Glucose Calcium Total Bilirubin AST ALT Alkaline Phosphatase Total Protein Albumin RPR Titer Hep C Ab Diagnostic 1.6 H HCV RNA PCR w/Genot Rflx Hcv not detected Liver Fibrosis Interp Pt will follow up with his provider with all lab results after rehab.
[2019-01-06] MEDS: THIAMINE HCL 100 MG TABLET (FP) PO SCH (21:48)
[2019-01-06] MEDS: MELATONIN 5 MG TABLETS PO PRN (21:49)
--- NOTE | 2019-01-07 09:04 | DS ---
[facility] Rehab Discharge Summary - [facility] Rehab Discharge Summary Admission Date: 12/31/18 Discharge Date: 01/07/19 - History Pertinent Past History: 48 year old male with a history of opioid and alcohol dependence presents for detox from heroin and alcohol. Was here back in October for both detox/rehab. Reports being clean for 1 month before relapse. Was in methadone program years ago. 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 Family: lives with ; 1 son 14 years old 2 daughter, close with children - Discharge Physical Exam Vital Signs: Vital Signs Temperature 98.2 F 01/07/19 07:08 Pulse Rate 81 01/07/19 07:08 Respiratory Rate 18 01/07/19 07:08 Blood Pressure 146/100 01/07/19 07:08 O2 Sat by Pulse Oximetry (%) Pertinent Admission Physical Exam Findings: Physical General Appearance: Yes: No Apparent Distress HEENTM: Yes: Normocephalic Respiratory: Yes: Chest Non-Tender, Lungs Clear, Normal Breath Sounds Breast: Yes: Within Normal Limits Cardiology: Yes: Regular Rhythm, Regular Rate Abdominal: Yes: Normal Bowel Sounds, Non Tender, Flat, Soft Extremities: Yes: Normal Capillary Refill, Normal Range of Motion, Non-Tender Neurological: 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
--- NOTE | 2019-01-07 10:04 | PN ---
S Progress Note Note: Was informed that the patient was to be discharged on 01/07/19; started to initiate discharge process when I was then informed the patient would stay in rehab until .
[2019-01-07] MEDS: PRENATAL VITAMINS W/ FOLIC ACID TABLET (FP) PO SCH (10:38)
[2019-01-07] MEDS: THIAMINE HCL 100 MG TABLET (FP) PO SCH (21:30)
[2019-01-07] MEDS: MELATONIN 5 MG TABLETS PO PRN (21:30)
[2019-01-08 07:27] VITALS: TEMP 97.9
--- NOTE | 2019-01-08 10:38 | DS ---
[facility] Rehab Discharge Summary - [facility] Rehab Discharge Summary Admission Date: 12/31/18 Discharge Date: 01/08/19 - History Present History: Opioid dependence Additional Comments: Pt is a 48 y/o male with a hx of MARAH admitted to rehab and scheduled to discharge on 01/09/19. Pertinent Past History: Hep C Hx DM(no current meds;currently diet controlled) Obesity Schizophrenia - Discharge Physical Exam Vital Signs: Vital Signs Temperature 97.9 F 01/08/19 07:26 Pulse Rate 81 01/08/19 07:26 Respiratory Rate 20 01/08/19 07:26 Blood Pressure 143/95 01/08/19 07:26 O2 Sat by Pulse Oximetry (%) Alert o x 3 nad oob ambulating with steady gait cardiac:s1 s2, rrr lungs:cta,tiara. abdomen:soft,+bs,nt++fatty extremities/skin:no edema,full ROM,skin dry but intact. Pertinent Admission Physical Exam Findings: Laboratory Tests 01/01/19 01/01/19 01/01/19 08:15 08:15 08:15 WBC 8.4 RBC 4.35 Hgb 12.7 Hct 39.4 MCV 90.6 MCH 29.2 MCHC 32.3 RDW 13.5 Plt Count 205 MPV 10.0 Sodium 138 Potassium 4.4 Chloride 104 Carbon Dioxide 28 Anion Gap 6 L BUN 20.6 H Creatinine 0.8 Est GFR (CKD-EPI)AfAm 123.29 Est GFR (CKD-EPI)NonAf 106.38 Random Glucose 105 Calcium 8.7 Total Bilirubin 0.3 AST 10 L ALT 20 Alkaline Phosphatase 84 Total Protein 6.5 Albumin 3.6 RPR Titer Nonreactive Hep C Ab Diagnostic HCV RNA PCR w/Genot Rflx Liver Fibrosis Interp 01/01/19 12:10 WBC RBC Hgb Hct MCV MCH MCHC RDW Plt Count MPV Sodium Potassium Chloride Carbon Dioxide Anion Gap BUN Creatinine Est GFR (CKD-EPI)AfAm Est GFR (CKD-EPI)NonAf Random Glucose Calcium Total Bilirubin AST ALT Alkaline Phosphatase Total Protein Albumin RPR Titer Hep C Ab Diagnostic 1.6 H HCV RNA PCR w/Genot Rflx Hcv not detected Liver Fibrosis Interp Pt has been given all lab results to follow up with his primary care provider for medical management. However, pt reports previous knowledge of Hep C screen positive result Pt reports was on Metformin for elevated Blood Sugar but not taking currently and has lost >40 pounds. D/w pt about the need for diet and exercise and follow up with his medical provider after discharge - Treatment Discharge Condition: Discharge condition good Hospital Course: Rehabilitated safely and responded well CD aftercare referral accepted - Medication Discharge Medications: Ambulatory Orders NK [No Known Home Medication] 10/28/18 - Medication-Assisted Treatment (MAT) Medication-Assisted Treatment (MAT): No - Discharge Instructions Diet, activity, other medical instructions: Diet:Regular Activity: oob ad karon Other medical instructions:Follow up with CD aftercare @ [facility] on [address] [place], [place] as recommended Follow up with Primary Care provider @ [facility] on [address] [place], [place] within 1 week after discharge from rehab. - Diagnosis (1) Opioid dependence Current Visit: Yes Status: Chronic Qualifiers: Substance use status: uncomplicated Qualified Code(s): F11.20 - Opioid dependence, uncomplicated (2) Obesity (BMI 30.0-34.9) Current Visit: Yes Status: Chronic (3) History of hepatitis C Current Visit: Yes Status: Chronic - Follow-up Referral Minutes to complete discharge: 20 - AMA Did Patient Leave Against Medical Advice: No
[2019-01-08] MEDS: PRENATAL VITAMINS W/ FOLIC ACID TABLET (FP) PO SCH (10:52)
[2019-01-08] MEDS: MELATONIN 5 MG TABLETS PO PRN (21:31)
[2019-01-08] MEDS: THIAMINE HCL 100 MG TABLET (FP) PO SCH (21:31)
[2019-01-09 08:06] VITALS: BP 139/96; PULSE 91
== END 2019-01-09 07:55 | disposition home or self-care (01) | DRG 895 ==
LOC: YASAS 13:44 → Y6N 18:01 → Y5N 01-02 12:54
PROVIDERS: ADMIT Allergy & Immunology; ATTEND Neuromusculoskeletal Medicine & OMM
PROC: HZ2ZZZZ Detoxification Services for Substance Abuse Treatment (ICD-10-PCS; 2018-12-31)
PROC: HZ42ZZZ Group Counseling for Substance Abuse Treatment, Cognitive-Behavioral (ICD-10-PCS; principal; 2019-01-02)
DX: F11.20 Opioid dependence, uncomplicated (principal); F19.282 Other psychoactive substance dependence with psychoactive substance-induced sleep disorder; F10.20 Alcohol dependence, uncomplicated; F20.9 Schizophrenia, unspecified; Z87.891 Personal history of nicotine dependence; E11.65 Type 2 diabetes mellitus with hyperglycemia; B18.2 Chronic viral hepatitis C; E66.9 Obesity, unspecified; Z68.30 Body mass index [BMI] 30.0-30.9, adult
CPT/HCPCS: 36415; 80053; 85027; 86593; 86803; 90732; G0008; G0009; J0735; Q2036

== ENCOUNTER 2019-02-01 09:29 | Inpatient (IN) | payer OTHER ==
[2019-02-01 09:58] VITALS: BMI 32.5
--- NOTE | 2019-02-01 11:14 | HP ---
COWS - Scale Resting Pulse: 0= [place] 80 or Below Sweatin= Chills/Flushing Restless Observation: 1= Difficult to Sit Still Pupil Size: 0= Normal to Room Light Bone or Joint Aches: 1= Mild Discomfort Runny Nose/ Eye Tearin= Runny Nose/Eyes GI Upset > 30mins: 2= Nausea/Diarrhea Tremor Observation: 2= Slight Tremor Visible Yawning Observation: 1= 1-2x During Session Anxiety or Irritability: 1=Feels Anxious/Irritable Goose Flesh Skin: 3=Piloerection COWS Score: 14 Admitting History and Physical - Admission History Source: Patient, Medical Record - Past Medical History Hepatobiliary: Yes: Hepatitis C (NO VIRAL LOAD) - Smoking History Smoking history: Former smoker If you are a former smoker, when did you quit?: 20 yrs ago - Alcohol/Substance Use Hx Alcohol Use: No - Social History Usual Living Arrangement: Yes: With Spouse ADL: Support Services (social security disability) Admission ROS BHS - HPI Chief Complaint: I'm going through it now, I need to stop, I get so sick, I'm tired of using - I want to stop, I know it's hard but it can be done Allergies/Adverse Reactions: Allergies Allergy/AdvReac Type Severity Reaction Status Date / Time No Known Allergies Allergy Verified 02/01/19 09:50 History of Present Illness: 48 yo gentleman here for detox from opiates - also using cocaine but no alcohol. He starts using first thing to help him get going in the morning or he will be sick. He was on MMTP about a year ago in [facility] (70mg( but had insurance problems so stopped). He is interested in getting back on a program. No seizures, no black outs and denies overdose. Lives with his , on disability. - Ebola screening Have you traveled outside of the country in the last 21 days: No (N) Have you had contact with anyone from an Ebola affected area: No Do you have a fever: No Patient History - Patient Medical History Hx Anemia: No Hx Asthma: No Hx Chronic Obstructive Pulmonary Disease (COPD): No Hx Cancer: No Hx Cardiac Disorders: No Hx Congestive Heart Failure: No Hx Hypertension: No Hx Hypercholesterolemia: No Hx Pacemaker: No HX Cerebrovascular Accident: No Hx Seizures: No Hx Dementia: No Hx Diabetes: No Hx Gastrointestinal Disorders: No Hx Liver Disease: No Hx Genitourinary Disorders: No Hx Sexually Transmitted Disorders: No Hx Renal Disease (ESRD): No Hx Thyroid Disease: No Hx Human Immunodeficiency Virus (HIV): No Hx Hepatitis C: Yes (NO VIRAL LOAD) Hx Depression: No Hx Suicide Attempt: No (denies) Hx Bipolar Disorder: No Hx Schizophrenia: No - Patient Surgical History Past Surgical History: No Hx Neurologic Surgery: No Hx Cataract Extraction: No Hx Cardiac Surgery: No Hx Lung Surgery: No Hx Breast Surgery: No Hx Breast Biopsy: No Hx Abdominal Surgery: No Hx Appendectomy: No Hx Cholecystectomy: No Hx Genitourinary Surgery: No Hx Section: No Hx Orthopedic Surgery: No Anesthesia Reaction: No - PPD History Previous Implant?: Yes Documented Results: Negative w/proof Implanted On Prior R Admission?: Yes Results: TB QFT Neg-10/28 PPD to be Administered?: No - Reproductive History Patient is a Female of Child Bearing Age (11 -55 yrs old): No - Smoking Cessation Smoking history: Former smoker Have you smoked in the past 12 months: No Aproximately how many cigarettes per day: 0 If you are a former smoker, when did you quit?: 20 yrs ago Hx Chewing Tobacco Use: No Initiated information on smoking cessation: No - Substance & Tx. History Hx Alcohol Use: No Hx Substance Use: Yes Substance Use Type: Cocaine, Heroin Hx Substance Use Treatment: Yes (detox, rehab, mmtp) - Substances abused Heroin Substance route: Inhalation Frequency: Daily Amount used: 10 bags Age of first use: 26 Date of last use: 01/31/19 Crack Substance route: Smoking Frequency: 1-3 times last 30 days Amount used: 4 bags Age of first use: 89 Date of last use: 01/30/19 Alcohol Substance route: Oral Frequency: 1-2 times per week Amount used: (2)40 OZ Age of first use: 26 Date of last use: 01/28/19 Admission Physical Exam BHS - Vital Signs Vital Signs: Vital Signs - 24 hr 02/01/19 09:49 Temperature 96.7 F L Pulse Rate 63 Respiratory 20 Rate Blood Pressure 123/73 - Physical General Appearance: Yes: Nourished, Appropriately Dressed, Moderate Distress, Tremorous, Anxious HEENTM: Yes: EOMI, Hearing grossly Normal, Normocephalic, Normal Voice, Pharynx Normal, Nasal Congestion, Rhinorrhea Respiratory: Yes: Normal Breath Sounds, No Respiratory Distress Neck: Yes: No masses,lesions,Nodules Breast: Yes: Breast Exam Deferred Cardiology: Yes: Regular Rhythm, Regular Rate Abdominal: Yes: Soft Genitourinary: Yes: Within Normal Limits Back: Yes: Normal Inspection Musculoskeletal: Yes: full range of Motion, Gait Steady, Back pain, Muscle Pain Extremities: Yes: Normal Inspection, Normal Range of Motion, Tremors Neurological: Yes: Fully Oriented, Alert, Motor Strength 5/5, Normal Mood/Affect , Normal Response Integumentary: Yes: Normal Color, Warm Lymphatic: Yes: Within Normal Limits Cleared for Admission S - Detox or Rehab [facility] Level of Care: Medically Managed Detox Regimen/Protocol: Methadone Breathalyzer - Breathalyzer Breathalyzer: 0 Urine Drug Screen - Test Device Lot number: [id number] Expiration date: 10/09/20 - Control Is test valid?: Yes - Results Drug screen NEGATIVE: No Urine drug screen results: DEVON-Cocaine, MOP-Opiates Inpatient Rehab Admission - Rehab Decision to Admit Inpatient rehab admission?: No
[2019-02-01] MEDS ORDERED: BISMUTH SUBSALICYLATE 524 MG/30 ML UD PO PRN (11:23)
[2019-02-01] MEDS ORDERED: IBUPROFEN 400 MG TABLET (FP) PO PRN (11:23)
[2019-02-01] MEDS ORDERED: MENTHOL/PHENOL 1 EACH UD MM PRN (11:23)
[2019-02-01] MEDS ORDERED: MAGNESIUM CITRATE 300 ML BOTTLE PO PRN (11:23)
[2019-02-01] MEDS ORDERED: MAGNESIUM HYDROX 2400MG/30ML ORAL SUSPENSION 30 ML CUP PO PRN (11:23)
[2019-02-01] MEDS ORDERED: ACETAMINOPHEN 325 MG TABLET (FP) PO PRN ×2 (11:23)
[2019-02-01] MEDS ORDERED: METHOCARBAMOL 500 MG TABLET PO PRN (11:23)
[2019-02-01] MEDS ORDERED: cloNIDine HCL 0.1 MG TABLET PO PRN (11:23)
[2019-02-01] MEDS ORDERED: clonazePAM 0.5 MG TABLET PO PRN (11:23)
[2019-02-01] MEDS ORDERED: MAG HYDROX/AL HYDROX/SIMETH 30 ML UNIT-DOSE CUP PO PRN (11:23)
[2019-02-01] MEDS ORDERED: METHADONE HCL 10 MG TABLET (FOR DETOX USE ONLY) PO ONE (13:00)
[2019-02-01] MEDS: THIAMINE HCL 100 MG TABLET (FP) PO SCH (22:27)
[2019-02-02] MEDS ORDERED: METHADONE HCL 10 MG TABLET (FOR DETOX USE ONLY) ONE (09:44)
[2019-02-02] MEDS ORDERED: METHADONE HCL 5 MG TABLET (FOR DETOX USE ONLY) ONE (09:44)
[2019-02-02] MEDS ORDERED: METHADONE (DETOX) 20 MG, METHADONE (DETOX) 5 MG PO ONE (10:00)
--- NOTE | 2019-02-02 10:23 | PN ---
BHS COWS - Scale Resting Pulse: 0= [place] 80 or Below Sweatin= Chills/Flushing Restless Observation: 0= Sits Still Pupil Size: 1= Pupils >than Normal Bone or Joint Aches: 1= Mild Discomfort Runny Nose/ Eye Tearin= Nasal Congestion GI Upset > 30mins: 1= Stomach Cramp Tremor Observation of Outstretched Hands: 2= Slight Tremor Visible Yawning Observation: 1= 1-2x During Session Anxiety or Irritability: 2=Irritable/Anxious Goose Flesh Skin: 3=Piloerection COWS Score: 13 BHS Progress Note (SOAP) Subjective: 48 YEARS OLD MALE ADMITTED ON 02/01/19 FOR OPIATE WITHDRAWAL SX MANAGEMENT TREATED WITH METHADONE DETOX REGIMEN ATE BREAKFAST AMBULATING ON HALLWAY DISCUSS MEDICATION ASSISTED TREATMENT PROGRAM 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
[2019-02-02] MEDS: PRENATAL VITAMINS W/ FOLIC ACID TABLET (FP) PO SCH (10:28)
[2019-02-02 12:18] LABS: HEMATOCRIT 37.2 % (35.4-49); HEMOGLOBIN 12.2 GM/dL (11.7-16.9); MCH 29.6 pg (25.7-33.7); MCHC 32.8 g/dl (32.0-35.9); MEAN CELL VOLUME 90.4 fl (80-96); MEAN PLT VOLUME 9.8 fl (7.5-11.1); PLATELET COUNT 220 K/MM3 (134-434); RBC 4.12 M/mm3 (4.00-5.60)
[2019-02-02 12:24] LABS: ALBUMIN 3.5 g/dl (3.4-5.0); BILIRUBIN,TOTAL 0.3 mg/dL (0.2-1); BLOOD UREA NITROGEN 16.4 mg/dL (7-18); CALCIUM 8.6 mg/dL (8.5-10.1); CREATININE 0.7 mg/dL (0.55-1.3); POTASSIUM 4.4 mmol/L (3.5-5.1); TOT PROT 6.4 g/dl (6.4-8.2)
[2019-02-02] MEDS: MELATONIN 5 MG TABLETS PO PRN (21:30)
[2019-02-02] MEDS: THIAMINE HCL 100 MG TABLET (FP) PO SCH (21:30)
--- NOTE | 2019-02-03 09:55 | PN ---
BHS COWS - Scale Resting Pulse: 0= [place] 80 or Below Sweatin= Chills/Flushing Restless Observation: 0= Sits Still Pupil Size: 1= Pupils >than Normal Bone or Joint Aches: 1= Mild Discomfort Runny Nose/ Eye Tearin= None GI Upset > 30mins: 2= Nausea/Diarrhea Tremor Observation of Outstretched Hands: 2= Slight Tremor Visible Yawning Observation: 0= None Anxiety or Irritability: 2=Irritable/Anxious Goose Flesh Skin: 3=Piloerection COWS Score: 12 BHS Progress Note (SOAP) Subjective: 48 years old male admitted on 02/01/19 for opiate withdrawal sx management treated with methadone detox regimen c/o mild diarrhea tolerate oral fluid well good skin 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9-15.9) 02/02/19 07:35 Plt Count 220 K/MM3 (134-434) 02/02/19 07:35 MPV 9.8 fl (7.5-11.1) 02/02/19 07:35 Sodium 139 mmol/L (136-145) 02/02/19 07:35 Potassium 4.4 mmol/L (3.5-5.1) 02/02/19 07:35 Chloride 107 mmol/L (98-107) 02/02/19 07:35 Carbon Dioxide 30 mmol/L (21-32) 02/02/19 07:35 Anion Gap 3 MMOL/L (8-16) L 02/02/19 07:35 BUN 16.4 mg/dL (7-18) 02/02/19 07:35 Creatinine 0.7 mg/dL (0.55-1.3) 02/02/19 07:35 Est GFR (CKD-EPI)AfAm 130.25 02/02/19 07:35 Est GFR (CKD-EPI)NonAf 112.38 02/02/19 07:35 Random Glucose 94 mg/dL (74-106) 02/02/19 07:35 Calcium 8.6 mg/dL (8.5-10.1) 02/02/19 07:35 Total Bilirubin 0.3 mg/dL (0.2-1) 02/02/19 07:35 AST 16 U/L (15-37) 02/02/19 07:35 ALT 30 U/L (13-61) 02/02/19 07:35 Alkaline Phosphatase 72 U/L (45-117) 02/02/19 07:35 Total Protein 6.4 g/dl (6.4-8.2) 02/02/19 07:35 Albumin 3.5 g/dl (3.4-5.0) 02/02/19 07:35 RPR Titer Nonreactive (NONREACTIVE) 02/02/19 07:35 lab noted Assessment: 02/03/19 09:56 opiate withdrawal sx Plan: continue methadone detox regimen
[2019-02-03] MEDS ORDERED: METHADONE HCL 10 MG TABLET (FOR DETOX USE ONLY) PO ONE (10:00)
[2019-02-03] MEDS: PRENATAL VITAMINS W/ FOLIC ACID TABLET (FP) PO SCH (10:05)
[2019-02-03] MEDS: THIAMINE HCL 100 MG TABLET (FP) PO SCH (22:04)
[2019-02-03] MEDS: MELATONIN 5 MG TABLETS PO PRN (22:05)
[2019-02-04] MEDS ORDERED: METHADONE HCL 5 MG TABLET (FOR DETOX USE ONLY) ONE (09:33)
[2019-02-04] MEDS ORDERED: METHADONE HCL 10 MG TABLET (FOR DETOX USE ONLY) ONE (09:33)
[2019-02-04] MEDS ORDERED: METHADONE (DETOX) 10 MG, METHADONE (DETOX) 5 MG PO ONE (10:00)
[2019-02-04] MEDS: PRENATAL VITAMINS W/ FOLIC ACID TABLET (FP) PO SCH (10:04)
--- NOTE | 2019-02-04 13:48 | PN ---
BHS COWS - Scale Resting Pulse: 0= [place] 80 or Below Sweatin= Chills/Flushing Restless Observation: 0= Sits Still Pupil Size: 1= Pupils >than Normal Bone or Joint Aches: 1= Mild Discomfort Runny Nose/ Eye Tearin= Nasal Congestion GI Upset > 30mins: 1= Stomach Cramp Tremor Observation of Outstretched Hands: 1= Tremor [place], Not Seen Yawning Observation: 1= 1-2x During Session Anxiety or Irritability: 1=Feels Anxious/Irritable Goose Flesh Skin: 0=Smooth Skin COWS Score: 8 BHS Progress Note (SOAP) Subjective: 48 years old male admitted on 02/01/19 for opiate withdrawal sx management treated with methadone detox regimen discuss 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 treatment 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 ambulating on hallway social with peers in day room Objective: 02/04/19 13:49 Vital Signs Temperature 97.7 F 02/04/19 13:17 Pulse Rate 60 02/04/19 13:17 Respiratory Rate 18 02/04/19 13:17 Blood Pressure 135/89 02/04/19 13:17 O2 Sat by Pulse Oximetry (%) Laboratory Last Values WBC 8.0 K/mm3 (4.0-10.0) 02/02/19 07:35 RBC 4.12 M/mm3 (4.00-5.60) 02/02/19 07:35 Hgb 12.2 GM/dL (11.7-16.9) 02/02/19 07:35 Hct 37.2 % (35.4-49) 02/02/19 07:35 MCV 90.4 fl (80-96) 02/02/19 07:35 MCH 29.6 pg (25.7-33.7) 02/02/19 07:35 MCHC 32.8 g/dl (32.0-35.9) 02/02/19 07:35 RDW 14.0 % (11.9-15.9) 02/02/19 07:35 Plt Count 220 K/MM3 (134-434) 02/02/19 07:35 MPV 9.8 fl (7.5-11.1) 02/02/19 07:35 Sodium 139 mmol/L (136-145) 02/02/19 07:35 Potassium 4.4 mmol/L (3.5-5.1) 02/02/19 07:35 Chloride 107 mmol/L (98-107) 02/02/19 07:35 Carbon Dioxide 30 mmol/L (21-32) 02/02/19 07:35 Anion Gap 3 MMOL/L (8-16) L 02/02/19 07:35 BUN 16.4 mg/dL (7-18) 02/02/19 07:35 Creatinine 0.7 mg/dL (0.55-1.3) 02/02/19 07:35 Est GFR (CKD-EPI)AfAm 130.25 02/02/19 07:35 Est GFR (CKD-EPI)NonAf 112.38 02/02/19 07:35 Random Glucose 94 mg/dL (74-106) 02/02/19 07:35 Calcium 8.6 mg/dL (8.5-10.1) 02/02/19 07:35 Total Bilirubin 0.3 mg/dL (0.2-1) 02/02/19 07:35 AST 16 U/L (15-37) 02/02/19 07:35 ALT 30 U/L (13-61) 02/02/19 07:35 Alkaline Phosphatase 72 U/L (45-117) 02/02/19 07:35 Total Protein 6.4 g/dl (6.4-8.2) 02/02/19 07:35 Albumin 3.5 g/dl (3.4-5.0) 02/02/19 07:35 RPR Titer Nonreactive (NONREACTIVE) 02/02/19 07:35 lab noted Assessment: 02/04/19 13:50 opiate withdrawal sx Plan: continue methadone detox regimeb
[2019-02-04] MEDS: THIAMINE HCL 100 MG TABLET (FP) PO SCH (22:18)
[2019-02-05] MEDS ORDERED: METHADONE HCL 10 MG TABLET (FOR DETOX USE ONLY) PO ONE (10:00)
[2019-02-05] MEDS: PRENATAL VITAMINS W/ FOLIC ACID TABLET (FP) PO SCH (10:16)
--- NOTE | 2019-02-05 10:37 | HP ---
[facility] Rehab Assess/Revision - Admission History Admitted to Rehab from: [facility] Date of Admission to Rehab: 02/05/19 - Vital signs Vital Signs: Vital Signs Period Temp Pulse Resp BP Sys/Tejeda Pulse Ox Last 24 Hr 97.1 F-98.5 F 60-74 18-18 125-142/75-89 - Findings Detox History & Physical reviewed: Yes Concur with findings: Yes Comments/Additional Findings: transferred from detox to rehab admission as per protocol Inpatient Rehab Admission - Rehab Decision to Admit Inpatient rehab admission?: Yes - Initial Determination Are CD services needed?: Yes Free of communicable disease: Yes Not in need of hospitalization: Yes - Rehab Admission Criteria Previous failed treatment: Yes Poor recovery environment: Yes Comorbidities: Yes Lacks judgement: Yes Patient is meeting Inpatient Rehab admission criteria:: Yes
[2019-02-05] MEDS: THIAMINE HCL 100 MG TABLET (FP) PO SCH (21:15)
[2019-02-05] MEDS: MELATONIN 5 MG TABLETS PO PRN (21:15)
[2019-02-06] MEDS ORDERED: MAGNESIUM CITRATE 300 ML BOTTLE PO PRN (02:56)
[2019-02-06] MEDS ORDERED: MENTHOL/PHENOL 1 EACH UD MM PRN (02:56)
[2019-02-06] MEDS ORDERED: MAG HYDROX/AL HYDROX/SIMETH 30 ML UNIT-DOSE CUP PO PRN (02:56)
[2019-02-06] MEDS ORDERED: guaiFENesin 200 MG/10 ML 10 ML UNIT-DOSE CUPS PO PRN (02:56)
[2019-02-06] MEDS ORDERED: IBUPROFEN 400 MG TABLET (FP) PO PRN (02:56)
[2019-02-06] MEDS ORDERED: MAGNESIUM HYDROX 2400MG/30ML ORAL SUSPENSION 30 ML CUP PO PRN (02:56)
[2019-02-06] MEDS ORDERED: LOPERAMIDE HCL 2 MG CAPSULE PO PRN (02:56)
[2019-02-06] MEDS ORDERED: ACETAMINOPHEN 325 MG TABLET (FP) PO PRN (02:56)
[2019-02-06] MEDS ORDERED: P-EPHED 60MG/TRIPROLIDI 2.5MG TABLET PO PRN (02:56)
[2019-02-06] MEDS ORDERED: METHADONE HCL 5 MG TABLET (FOR DETOX USE ONLY) PO ONE (06:00)
[2019-02-06] MEDS: PRENATAL VITAMINS W/ FOLIC ACID TABLET (FP) PO SCH (10:29)
[2019-02-06] MEDS: NICOTINE 14 MG/24 HOURS TOPICAL PATCH TD SCH (10:29)
[2019-02-06] MEDS: NICOTINE POLACRILEX 2 MG GUM BUC PRN (10:30)
[2019-02-06] MEDS: THIAMINE HCL 100 MG TABLET (FP) PO SCH (21:40)
[2019-02-06] MEDS ORDERED: MELATONIN 5 MG TABLETS PO PRN (22:00)
[2019-02-07] MEDS: NICOTINE POLACRILEX 2 MG GUM BUC PRN (10:09)
[2019-02-07] MEDS: NICOTINE 14 MG/24 HOURS TOPICAL PATCH TD SCH (10:09)
[2019-02-07] MEDS: PRENATAL VITAMINS W/ FOLIC ACID TABLET (FP) PO SCH (10:09)
[2019-02-07] MEDS: THIAMINE HCL 100 MG TABLET (FP) PO SCH (22:12)
[2019-02-08] MEDS: NICOTINE 14 MG/24 HOURS TOPICAL PATCH TD SCH (09:05)
[2019-02-08] MEDS: PRENATAL VITAMINS W/ FOLIC ACID TABLET (FP) PO SCH (09:05)
[2019-02-08] MEDS: NICOTINE POLACRILEX 2 MG GUM BUC PRN (15:14)
[2019-02-08] MEDS: THIAMINE HCL 100 MG TABLET (FP) PO SCH (21:47)
[2019-02-09] MEDS: PRENATAL VITAMINS W/ FOLIC ACID TABLET (FP) PO SCH (09:05)
[2019-02-09] MEDS: NICOTINE POLACRILEX 2 MG GUM BUC PRN ×2 (09:05→16:33)
[2019-02-09] MEDS: NICOTINE 14 MG/24 HOURS TOPICAL PATCH TD SCH (10:46)
[2019-02-09] MEDS: THIAMINE HCL 100 MG TABLET (FP) PO SCH (21:15)
[2019-02-10 06:57] VITALS: BP 120/80; PULSE 73; TEMP 98.2
[2019-02-10] MEDS: PRENATAL VITAMINS W/ FOLIC ACID TABLET (FP) PO SCH (09:10)
[2019-02-10] MEDS: NICOTINE POLACRILEX 2 MG GUM BUC PRN (09:11)
--- NOTE | 2019-02-10 11:30 | DS ---
[facility] Rehab Discharge Summary - [facility] Rehab Discharge Summary Admission Date: 02/01/19 Discharge Date: 02/10/19 - History Present History: Cocaine dependence, Opioid dependence Pertinent Past History: 48 yo gentleman here for detox from opiates - also using cocaine but no alcohol. He starts using first thing to help him get going in the morning or he will be sick. He was on MMTP about a year ago in [facility] (70mg( but had insurance problems so stopped). He is interested in getting back on a program. No seizures, no black outs and denies overdose. Lives with his , on disability. - Discharge Physical Exam Vital Signs: Vital Signs Temperature 98.2 F 02/10/19 06:56 Pulse Rate 73 02/10/19 06:56 Respiratory Rate 18 02/10/19 06:56 Blood Pressure 120/80 02/10/19 06:56 O2 Sat by Pulse Oximetry (%) Pertinent Admission Physical Exam Findings: ROS: DENIES OPIOD/COCAINE CRAVINGS, SWEATING, SHAKES, BODY ACHES AND CHEST PAIN/ SOB. PE: ALERT AND ORIENTED X 3 SKIN WARM AND DRY CAR S1S2, RRR RESP CTA BL GI NT, ND, BS+ EXT FULL ROM, AMB AD JONNA NO TREMORS DENIES SI/HI - Treatment Discharge Condition: Discharge condition good Hospital Course: Vital Signs Temperature 98.2 F 02/10/19 06:56 Pulse Rate 73 02/10/19 06:56 Respiratory Rate 18 02/10/19 06:56 Blood Pressure 120/80 02/10/19 06:56 O2 Sat by Pulse Oximetry (%) Laboratory Tests 02/02/19 02/02/19 02/02/19 07:35 07:35 07:35 WBC 8.0 RBC 4.12 Hgb 12.2 Hct 37.2 MCV 90.4 MCH 29.6 MCHC 32.8 RDW 14.0 Plt Count 220 MPV 9.8 Sodium 139 Potassium 4.4 Chloride 107 Carbon Dioxide 30 Anion Gap 3 L BUN 16.4 Creatinine 0.7 Est GFR (CKD-EPI)AfAm 130.25 Est GFR (CKD-EPI)NonAf 112.38 Random Glucose 94 Calcium 8.6 Total Bilirubin 0.3 AST 16 ALT 30 Alkaline Phosphatase 72 Total Protein 6.4 Albumin 3.5 RPR Titer Nonreactive Home Medications Medication Instructions Recorded Naloxone HCl [Narcan] 4 mg NS ASDIR PRN #1 spray 02/02/19 PATIENT COMPLETED REHAB TODAY AND AFTERCARE ARRANGED FOR [facility]. PATIENT STATES HE ACCOMPLISHED ALL REHAB GOALS AND IS MOTIVATED TO MAINTAIN SOBRIETY. PATIENT ATTENDED ALL GROUP MEETINGS, 1:1 COUNSELING SESSIONS AND EVALUATED/TX BY PSYCH TEAM. PATIENT IS MEDICALLY STABLE FOR D/C AND DENIES SI/HI. - Medication Discharge Medications: Ambulatory Orders Naloxone HCl [Narcan] 4 mg NS ASDIR PRN #1 spray 02/02/19 - Medication-Assisted Treatment (MAT) Medication-Assisted Treatment (MAT): No - Discharge Instructions Diet, activity, other medical instructions: Diet: NCS DARYL Activity: DARYL Other medical instructions: FOLLOW UP WITH PCP RECOMMENDED - Follow-up Referral Minutes to complete discharge: 30 - AMA Did Patient Leave Against Medical Advice: No
== END 2019-02-10 09:20 | disposition home or self-care (01) | DRG 895 ==
LOC: YASAS 09:29 → Y3N 11:48 → Y3W 02-05 13:53
PROVIDERS: ADMIT Allergy & Immunology; ATTEND Psychiatry & Neurology Psychiatry
PROC: HZ42ZZZ Group Counseling for Substance Abuse Treatment, Cognitive-Behavioral (ICD-10-PCS; principal; 2019-02-01)
DX: F11.20 Opioid dependence, uncomplicated (principal); F10.10 Alcohol abuse, uncomplicated; F14.10 Cocaine abuse, uncomplicated; B18.2 Chronic viral hepatitis C; Z87.891 Personal history of nicotine dependence
CPT/HCPCS: 36415; 80053; 85027; 86593

== ENCOUNTER 2019-04-24 20:14 | Inpatient (IN) | payer OTHER ==
--- NOTE | 2019-04-24 20:51 | HP ---
COWS - Scale Resting Pulse: 0= [place] 80 or Below Sweatin=Flushed/Facial Moisture Restless Observation: 1= Difficult to Sit Still Pupil Size: 0= Normal to Room Light Bone or Joint Aches: 4=Acute Joint/Muscle Pain Runny Nose/ Eye Tearin= Runny Nose/Eyes GI Upset > 30mins: 3= Vomiting/Diarrhea Tremor Observation: 0= None Yawning Observation: 1= 1-2x During Session Anxiety or Irritability: 2=Irritable/Anxious Goose Flesh Skin: 3=Piloerection COWS Score: 18 CIWA Score - Admission Criteria OASAS Guidelines: Admission for Medically Managed Detox: Requires at least one of the followin. CIWA greater than 12 2. Seizures within the past 24 hours 3. Delirium tremens within the past 24 hours 4. Hallucinations within the past 24 hours 5. Acute intervention needed for co occurring medical disorder 6. Acute intervention needed for co occurring psychiatric disorder 7. Severe withdrawal that cannot be handled at a lower level of care (continued vomiting, continued diarrhea, abnormal vital signs) requiring intravenous medication and/or fluids 8. Admitting History and Physical - Past Medical History Hepatobiliary: Yes: Hepatitis C (NO VIRAL LOAD) - Smoking History Smoking history: Former smoker Have you smoked in the past 12 months: No Aproximately how many cigarettes per day: 3 If you are a former smoker, when did you quit?: 20 yrs ago - Alcohol/Substance Use Hx Alcohol Use: No - Social History ADL: Support Services (social security disability) Admission [facility] Chief Complaint: C/O WITHDRAWAL SX'S Allergies/Adverse Reactions: Allergies Allergy/AdvReac Type Severity Reaction Status Date / Time No Known Allergies Allergy Verified 02/01/19 09:50 History of Present Illness: HERE FOR HEROIN DETOX. REFERRED BY OUTREACH. CLIENT IS KNOWN TO THIS PROGRAM. LAST HERE 01/2019 FOR REHAB. REPORTS RELAPSING SOON AFTER DC. USING HEROIN DAILY. LAST USE 5 AM THIS MORNING. NOW PRESENTS WITH C/O WITHDRAWAL SX'S. SNIFFING 10 BAGS DAILY. DENIES IV DRUG USE, REPORTS DRUG OVERDOSE X1. + BLACKOTS , DENIES SEIZURE D/O. DENIES ANY CLEAN TIME IN THE PAST 12 MONTHS. EXCEPT WHEN IN TXMENT. LIVES W/ FAMILY, UNEMPLOYED, DENIES LEGALS Exam Limitations: No Limitations - Ebola screening Have you traveled outside of the country in the last 21 days: No Have you had contact with anyone from an Ebola affected area: No Have you been sick,other than usual withdrawal symptoms: No Do you have a fever: No - Review of Systems Constitutional: Chills, Loss of Appetite, Malaise, Night Sweats, Changes in sleep EENT: reports: No Symptoms Reported, Nose Congestion, Other (RUNNY NOSE) Respiratory: reports: No Symptoms reported Cardiac: reports: No Symptoms Reported GI: reports: Diarrhea, Nausea, Poor Appetite, Poor Fluid Intake, Vomiting : reports: No Symptoms Reported Musculoskeletal: reports: No Symptoms Reported Integumentary: reports: Sweating Neuro: reports: No Symptoms reported Endocrine: reports: No Symptoms Reported Hematology: reports: No Symptoms Reported Psychiatric: reports: Orientated x3, Anxious, Depressed (DENIES SI) Other Systems: Reviewed and Negative Patient History - Patient Medical History Hx Anemia: No Hx Asthma: No Hx Chronic Obstructive Pulmonary Disease (COPD): No Hx Cancer: No Hx Cardiac Disorders: No Hx Congestive Heart Failure: No Hx Hypertension: No Hx Hypercholesterolemia: No Hx Pacemaker: No HX Cerebrovascular Accident: No Hx Seizures: No Hx Dementia: No Hx Diabetes: No Hx Gastrointestinal Disorders: No Hx Liver Disease: No Hx Genitourinary Disorders: No Hx Sexually Transmitted Disorders: No Hx Renal Disease (ESRD): No Hx Thyroid Disease: No Hx Human Immunodeficiency Virus (HIV): No Hx Hepatitis C: Yes (TX'ED) Hx Depression: No Hx Suicide Attempt: No Hx Bipolar Disorder: No Hx Schizophrenia: No Other Medical History: DENIES - Patient Surgical History Past Surgical History: No Hx Neurologic Surgery: No Hx Cataract Extraction: No Hx Cardiac Surgery: No Hx Lung Surgery: No Hx Breast Surgery: No Hx Breast Biopsy: No Hx Abdominal Surgery: No Hx Appendectomy: No Hx Cholecystectomy: No Hx Genitourinary Surgery: No Hx Section: No Hx Orthopedic Surgery: No Anesthesia Reaction: No - PPD History Previous Implant?: Yes Documented Results: Negative w/proof Implanted On Prior R Admission?: Yes Date: 11/10/18 Results: 0 mm PPD to be Administered?: Yes - Smoking Cessation Smoking history: Current every day smoker Have you smoked in the past 12 months: Yes Aproximately how many cigarettes per day: 2 Cigars Per Day: 0 Hx Chewing Tobacco Use: No Initiated information on smoking cessation: Yes 'Breaking Loose' booklet given: 04/24/19 - Substance & Tx. History Hx Alcohol Use: No Hx Substance Use: Yes Substance Use Type: Cocaine, Heroin Hx Substance Use Treatment: Yes ([facility]) - Substances abused Heroin Substance route: Inhalation Frequency: Daily Amount used: 10 BAGS Age of first use: 26 Date of last use: 04/24/19 (10 BAGS) Cocaine Substance route: Smoking Frequency: 3-6 times per week (3X) Amount used: $40 Age of first use: 26 Date of last use: 04/23/19 Admission Physical Exam [facility] - Physical General Appearance: Yes: Mild Distress, Sweating, Anxious HEENTM: Yes: EOMI, Normocephalic, Normal Voice, ISMA, Pharynx Normal, Other Respiratory: Yes: Chest Non-Tender, Lungs Clear, Normal Breath Sounds, No Respiratory Distress, No Accessory Muscle Use Neck: Yes: No masses,lesions,Nodules, Supple, Trachea in good position Breast: Yes: Breasts Symetrical Cardiology: Yes: Regular Rhythm, Regular Rate, S1, S2 Abdominal: Yes: Normal Bowel Sounds, Non Tender, Soft, Protuberent Genitourinary: Yes: Within Normal Limits Back: Yes: Normal Inspection Musculoskeletal: Yes: Gait Steady Extremities: Yes: Normal Capillary Refill, Normal Range of Motion, Non-Tender Neurological: Yes: Fully Oriented, Alert, Motor Strength 5/5 Integumentary: Yes: Cold (cool), Clammy Lymphatic: Yes: Within Normal Limits - Diagnostic (1) Opioid dependence with withdrawal Current Visit: Yes Status: Acute (2) Cocaine dependence, uncomplicated Current Visit: Yes Status: Acute (3) Nicotine dependence Current Visit: Yes Status: Chronic Qualifiers: Nicotine product type: cigarettes Substance use status: uncomplicated Qualified Code(s): F17.210 - Nicotine dependence, cigarettes, uncomplicated (4) Substance induced mood disorder Current Visit: Yes Status: Suspected (5) Substance-induced sleep disorder Current Visit: Yes Status: Suspected (6) History of hepatitis C Current Visit: Yes Status: Chronic Cleared for Admission [facility] - Detox or Rehab [facility] Level of Care: Medically Managed Detox Regimen/Protocol: Methadone Claeared for Rehab Admission: No Breathalyzer - Breathalyzer Breathalyzer: 0 Urine Drug Screen - Test Device Lot number: [id number] Expiration date: 10/09/20 - Control Is test valid?: Yes - Results Drug screen NEGATIVE: No Urine drug screen results: DEVON-Cocaine, MOP-Opiates Inpatient Rehab Admission - Rehab Decision to Admit Inpatient rehab admission?: No
[2019-04-24] MEDS ORDERED: hydrOXYzine PAMOATE 25 MG CAPSULE (FP) PO PRN (21:01)
[2019-04-24] MEDS ORDERED: ONDANSETRON *ODT* 4 MG TABLET SL PRN (21:01)
[2019-04-24] MEDS ORDERED: METHOCARBAMOL 500 MG TABLET PO PRN (21:01)
[2019-04-24] MEDS ORDERED: NICOTINE POLACRILEX 2 MG GUM BUC PRN (21:01)
[2019-04-24] MEDS ORDERED: P-EPHED 60MG/TRIPROLIDI 2.5MG TABLET PO PRN (21:01)
[2019-04-24] MEDS ORDERED: MENTHOL/PHENOL 1 EACH UD MM PRN (21:01)
[2019-04-24] MEDS ORDERED: NALOXONE HCL 0.4 MG/ML VIAL IM PRN (21:01)
[2019-04-24] MEDS ORDERED: DICYCLOMINE HCL 10 MG CAPSULE PO PRN (21:01)
[2019-04-24] MEDS ORDERED: ACETAMINOPHEN 325 MG TABLET (FP) PO PRN ×2 (21:01)
[2019-04-24] MEDS ORDERED: IBUPROFEN 400 MG TABLET (FP) PO PRN (21:01)
[2019-04-24] MEDS ORDERED: BISMUTH SUBSALICYLATE 524 MG/30 ML UD PO PRN (21:01)
[2019-04-24] MEDS ORDERED: MAGNESIUM CITRATE 300 ML BOTTLE PO PRN (21:01)
[2019-04-24] MEDS ORDERED: guaiFENesin 200 MG/10 ML 10 ML UNIT-DOSE CUPS PO PRN (21:01)
[2019-04-24] MEDS ORDERED: MAGNESIUM HYDROX 2400MG/30ML ORAL SUSPENSION 30 ML CUP PO PRN (21:01)
[2019-04-24] MEDS ORDERED: cloNIDine HCL 0.1 MG TABLET PO PRN (21:01)
[2019-04-24] MEDS ORDERED: MAG HYDROX/AL HYDROX/SIMETH 30 ML UNIT-DOSE CUP PO PRN (21:01)
[2019-04-24 21:19] VITALS: BMI 30.6
[2019-04-24] MEDS ORDERED: METHADONE HCL 10 MG TABLET (FOR DETOX USE ONLY) PO ONE (22:15)
[2019-04-24] MEDS: THIAMINE HCL 100 MG TABLET (FP) PO SCH (23:02)
[2019-04-24] MEDS: MELATONIN 5 MG TABLETS PO PRN (23:03)
[2019-04-25] MEDS ORDERED: METHADONE HCL 5 MG TABLET (FOR DETOX USE ONLY) ONE (09:10)
[2019-04-25] MEDS ORDERED: METHADONE HCL 10 MG TABLET (FOR DETOX USE ONLY) ONE (09:10)
[2019-04-25 09:51] LABS: HEMOGLOBIN 12.5 GM/dL (11.7-16.9); MCH 29.7 pg (25.7-33.7); MCHC 32.9 g/dl (32.0-35.9); MEAN CELL VOLUME 90.4 fl (80-96); MEAN PLT VOLUME 10.1 fl (7.5-11.1); PLATELET COUNT 192 K/MM3 (134-434); RDW 13.4 % (11.9-15.9); WHITE BLOOD COUNT 6.6 K/mm3 (4.0-10.0)
[2019-04-25] MEDS ORDERED: METHADONE (DETOX) 20 MG, METHADONE (DETOX) 5 MG PO ONE (10:00)
[2019-04-25] MEDS: PRENATAL VITAMINS W/ FOLIC ACID TABLET (FP) PO SCH (10:07)
[2019-04-25] MEDS: NICOTINE 14 MG/24 HOURS TOPICAL PATCH TD SCH (10:07)
[2019-04-25 10:09] LABS: ALBUMIN 3.5 g/dl (3.4-5.0); BILIRUBIN,TOTAL 0.4 mg/dL (0.2-1); BLOOD UREA NITROGEN 14.3 mg/dL (7-18); CALCIUM 8.7 mg/dL (8.5-10.1); CREATININE 0.7 mg/dL (0.55-1.3); POTASSIUM 4.2 mmol/L (3.5-5.1); TOT PROT 6.6 g/dl (6.4-8.2)
--- NOTE | 2019-04-25 10:47 | PN ---
S COWS - Scale Resting Pulse: 0= [place] 80 or Below Sweatin= Beads of Sweat on Face Restless Observation: 0= Sits Still Pupil Size: 1= Pupils >than Normal Bone or Joint Aches: 1= Mild Discomfort Runny Nose/ Eye Tearin= None GI Upset > 30mins: 1= Stomach Cramp Tremor Observation of Outstretched Hands: 0= None Yawning Observation: 0= None Anxiety or Irritability: 0= None Goose Flesh Skin: 0=Smooth Skin COWS Score: 6 BHS Progress Note (SOAP) Subjective: Complains of sweats, bone ache, stomach upset Objective: 04/25/19 10:46 Lab Results WBC 6.6 K/mm3 (4.0-10.0) 04/25/19 07:25 RBC 4.20 M/mm3 (4.00-5.60) 04/25/19 07:25 Hgb 12.5 GM/dL (11.7-16.9) 04/25/19 07:25 Hct 38.0 % (35.4-49) 04/25/19 07:25 MCV 90.4 fl (80-96) 04/25/19 07:25 MCHC 32.9 g/dl (32.0-35.9) 04/25/19 07:25 RDW 13.4 % (11.9-15.9) 04/25/19 07:25 Plt Count 192 K/MM3 (134-434) 04/25/19 07:25 Sodium 140 mmol/L (136-145) 04/25/19 07:25 Potassium 4.2 mmol/L (3.5-5.1) 04/25/19 07:25 Chloride 106 mmol/L (98-107) 04/25/19 07:25 Carbon Dioxide 28 mmol/L (21-32) 04/25/19 07:25 Anion Gap 7 MMOL/L (8-16) L 04/25/19 07:25 BUN 14.3 mg/dL (7-18) 04/25/19 07:25 Creatinine 0.7 mg/dL (0.55-1.3) 04/25/19 07:25 Random Glucose 110 mg/dL (74-106) H 04/25/19 07:25 Calcium 8.7 mg/dL (8.5-10.1) 04/25/19 07:25 Vital Signs Temperature 97.0 F L 04/25/19 08:41 Pulse Rate 67 04/25/19 08:41 Respiratory Rate 18 04/25/19 08:41 Blood Pressure 152/101 H 04/25/19 08:41 O2 Sat by Pulse Oximetry (%) PE Gnl: WDWN, in no distress Mental status: nl Gait: steady Assessment: 04/25/19 10:47 1. Opioid use disorder 04/25/19 10:47 2. Nicotine dependence Plan: 1. Methadone withdrawal protocol 2. Nicotine patch
--- NOTE | 2019-04-25 12:11 | EKG ---
Test Reason : Blood Pressure : / mmHG Vent. Rate : 069 BPM Atrial Rate : 069 BPM P-R Int : 190 ms QRS Dur : 110 ms QT Int : 404 ms P-R-T Axes : 050 031 057 degrees QTc Int : 432 ms NORMAL SINUS RHYTHM POSSIBLE LEFT ATRIAL ENLARGEMENT NO PREVIOUS ECGS AVAILABLE Confirmed by MARGOTH RODRIGUES MD ([id number]) on 04/25/2019 12:11:19 PM Referred By: Juan Jose Contreras Confirmed By:MARGOTH RODRIGUES MD
--- NOTE | 2019-04-25 13:04 | CONSULT ---
[facility] Psychiatric Consult - Data Date of interview: 04/25/19 Admission source: [facility] Identifying data: THREE visits at bedside, medical students in attendance, for the purpose of a psychiatric evaluation (as ordered by medical team). Mr Hill refused. Nursing staff is informed of patient's behavior.
[2019-04-25] MEDS: THIAMINE HCL 100 MG TABLET (FP) PO SCH (22:26)
[2019-04-25] MEDS: MELATONIN 5 MG TABLETS PO PRN (22:51)
[2019-04-26 09:39] LABS: PH,URINE 8.5 (5.0-8.0); URINE APPEARANCE CLEAR; URINE BILIRUBIN NEGATIVE (NEGATIVE); URINE COLOR YELLOW; URINE GLUCOSE (UA) NEGATIVE (NEGATIVE); URINE KETONE NEGATIVE (NEGATIVE); URINE LEUK ESTERASE NEGATIVE (NEGATIVE); URINE NITRITE NEGATIVE (NEGATIVE); URINE PROTEIN NEGATIVE (NEGATIVE); URINE UROBILINOGEN 0.2 mg/dL (0.2-1.0)
[2019-04-26] MEDS: PRENATAL VITAMINS W/ FOLIC ACID TABLET (FP) PO SCH (10:00)
[2019-04-26] MEDS ORDERED: METHADONE HCL 10 MG TABLET (FOR DETOX USE ONLY) PO ONE (10:00)
[2019-04-26] MEDS: NICOTINE 14 MG/24 HOURS TOPICAL PATCH TD SCH (10:01)
--- NOTE | 2019-04-26 10:48 | PN ---
BHS COWS - Scale Resting Pulse: 1= [place] 81-100 Sweatin= Beads of Sweat on Face Restless Observation: 1= Difficult to Sit Still Pupil Size: 0= Normal to Room Light Bone or Joint Aches: 2= Severe Diffuse Aches Runny Nose/ Eye Tearin= None GI Upset > 30mins: 0= None Tremor Observation of Outstretched Hands: 0= None Yawning Observation: 1= 1-2x During Session Anxiety or Irritability: 2=Irritable/Anxious Goose Flesh Skin: 0=Smooth Skin COWS Score: 10 S Progress Note (SOAP) Subjective: c/o irritability, anxiety, headache, muscle aches, and sweats. Objective: 04/26/19 10:47 Vital Signs 04/26/19 04/26/19 04/26/19 03:30 05:15 08:30 Temperature 98.0 F 99.0 F Pulse Rate 78 88 Respiratory 18 18 18 Rate Blood Pressure 149/105 H 151/106 H Laboratory Last Values WBC 6.6 K/mm3 (4.0-10.0) 04/25/19 07:25 RBC 4.20 M/mm3 (4.00-5.60) 04/25/19 07:25 Hgb 12.5 GM/dL (11.7-16.9) 04/25/19 07:25 Hct 38.0 % (35.4-49) 04/25/19 07:25 MCV 90.4 fl (80-96) 04/25/19 07:25 MCH 29.7 pg (25.7-33.7) 04/25/19 07:25 MCHC 32.9 g/dl (32.0-35.9) 04/25/19 07:25 RDW 13.4 % (11.9-15.9) 04/25/19 07:25 Plt Count 192 K/MM3 (134-434) 04/25/19 07:25 MPV 10.1 fl (7.5-11.1) 04/25/19 07:25 Sodium 140 mmol/L (136-145) 04/25/19 07:25 Potassium 4.2 mmol/L (3.5-5.1) 04/25/19 07:25 Chloride 106 mmol/L (98-107) 04/25/19 07:25 Carbon Dioxide 28 mmol/L (21-32) 04/25/19 07:25 Anion Gap 7 MMOL/L (8-16) L 04/25/19 07:25 BUN 14.3 mg/dL (7-18) 04/25/19 07:25 Creatinine 0.7 mg/dL (0.55-1.3) 04/25/19 07:25 Est GFR (CKD-EPI)AfAm 130.25 04/25/19 07:25 Est GFR (CKD-EPI)NonAf 112.38 04/25/19 07:25 Random Glucose 110 mg/dL (74-106) H 04/25/19 07:25 Calcium 8.7 mg/dL (8.5-10.1) 04/25/19 07:25 Total Bilirubin 0.4 mg/dL (0.2-1) 04/25/19 07:25 AST 29 U/L (15-37) 04/25/19 07:25 ALT 47 U/L (13-61) 04/25/19 07:25 Alkaline Phosphatase 84 U/L (45-117) 04/25/19 07:25 Total Protein 6.6 g/dl (6.4-8.2) 04/25/19 07:25 Albumin 3.5 g/dl (3.4-5.0) 04/25/19 07:25 Urine Color Yellow 04/26/19 08:00 Urine Appearance Clear 04/26/19 08:00 Urine pH 8.5 (5.0-8.0) H 04/26/19 08:00 Ur Specific [place] 1.016 (1.010-1.035) 04/26/19 08:00 Urine Protein Negative (NEGATIVE) 04/26/19 08:00 Urine Glucose (UA) Negative (NEGATIVE) 04/26/19 08:00 Urine Ketones Negative (NEGATIVE) 04/26/19 08:00 Urine Blood Negative (NEGATIVE) 04/26/19 08:00 Urine Nitrite Negative (NEGATIVE) 04/26/19 08:00 Urine Bilirubin Negative (NEGATIVE) 04/26/19 08:00 Urine Urobilinogen 0.2 mg/dL (0.2-1.0) 04/26/19 08:00 Ur Leukocyte Esterase Negative (NEGATIVE) 04/26/19 08:00 RPR Titer Nonreactive (NONREACTIVE) 04/25/19 07:25 Labs noted. Assessment: 04/26/19 10:47 AOX3, in no acute respiratory distress. Full ROM, ambulating in the unit. Withdrawal symptoms. Plan: continue detox.
[2019-04-26] MEDS: THIAMINE HCL 100 MG TABLET (FP) PO SCH (22:50)
[2019-04-26] MEDS: MELATONIN 5 MG TABLETS PO PRN (23:55)
[2019-04-27] MEDS ORDERED: METHADONE HCL 5 MG TABLET (FOR DETOX USE ONLY) ONE (09:29)
[2019-04-27] MEDS ORDERED: METHADONE HCL 10 MG TABLET (FOR DETOX USE ONLY) ONE (09:29)
[2019-04-27] MEDS ORDERED: METHADONE (DETOX) 10 MG, METHADONE (DETOX) 5 MG PO ONE (10:00)
[2019-04-27] MEDS: PRENATAL VITAMINS W/ FOLIC ACID TABLET (FP) PO SCH (10:08)
[2019-04-27] MEDS: NICOTINE 14 MG/24 HOURS TOPICAL PATCH TD SCH (10:09)
--- NOTE | 2019-04-27 15:14 | PN ---
BHS COWS - Scale Resting Pulse: 1= [place] 81-100 Sweatin= No chills or Flushing Restless Observation: 0= Sits Still Pupil Size: 1= Pupils >than Normal Bone or Joint Aches: 2= Severe Diffuse Aches Runny Nose/ Eye Tearin= None GI Upset > 30mins: 0= None Tremor Observation of Outstretched Hands: 2= Slight Tremor Visible Yawning Observation: 0= None Anxiety or Irritability: 2=Irritable/Anxious Goose Flesh Skin: 0=Smooth Skin COWS Score: 8 BHS Progress Note (SOAP) Subjective: 48 years old male admitted on 04/24/19 for opiate withdrawal sx management treating with methadone detox regiment feeling ok today ate breakfast and lunch in day room social with peers health teaching on the purpose of behavior and psychosocial therapies groups and meetings Objective: 04/27/19 15:17 Vital Signs Temperature 98.0 F 04/27/19 13:07 Pulse Rate 90 04/27/19 13:07 Respiratory Rate 18 04/27/19 13:07 Blood Pressure 125/85 04/27/19 13:07 O2 Sat by Pulse Oximetry (%) Laboratory Last Values WBC 6.6 K/mm3 (4.0-10.0) 04/25/19 07:25 RBC 4.20 M/mm3 (4.00-5.60) 04/25/19 07:25 Hgb 12.5 GM/dL (11.7-16.9) 04/25/19 07:25 Hct 38.0 % (35.4-49) 04/25/19 07:25 MCV 90.4 fl (80-96) 04/25/19 07:25 MCH 29.7 pg (25.7-33.7) 04/25/19 07:25 MCHC 32.9 g/dl (32.0-35.9) 04/25/19 07:25 RDW 13.4 % (11.9-15.9) 04/25/19 07:25 Plt Count 192 K/MM3 (134-434) 04/25/19 07:25 MPV 10.1 fl (7.5-11.1) 04/25/19 07:25 Sodium 140 mmol/L (136-145) 04/25/19 07:25 Potassium 4.2 mmol/L (3.5-5.1) 04/25/19 07:25 Chloride 106 mmol/L (98-107) 04/25/19 07:25 Carbon Dioxide 28 mmol/L (21-32) 04/25/19 07:25 Anion Gap 7 MMOL/L (8-16) L 04/25/19 07:25 BUN 14.3 mg/dL (7-18) 04/25/19 07:25 Creatinine 0.7 mg/dL (0.55-1.3) 04/25/19 07:25 Est GFR (CKD-EPI)AfAm 130.25 04/25/19 07:25 Est GFR (CKD-EPI)NonAf 112.38 04/25/19 07:25 Random Glucose 110 mg/dL (74-106) H 04/25/19 07:25 Calcium 8.7 mg/dL (8.5-10.1) 04/25/19 07:25 Total Bilirubin 0.4 mg/dL (0.2-1) 04/25/19 07:25 AST 29 U/L (15-37) 04/25/19 07:25 ALT 47 U/L (13-61) 04/25/19 07:25 Alkaline Phosphatase 84 U/L (45-117) 04/25/19 07:25 Total Protein 6.6 g/dl (6.4-8.2) 04/25/19 07:25 Albumin 3.5 g/dl (3.4-5.0) 04/25/19 07:25 Urine Color Yellow 04/26/19 08:00 Urine Appearance Clear 04/26/19 08:00 Urine pH 8.5 (5.0-8.0) H 04/26/19 08:00 Ur Specific [place] 1.016 (1.010-1.035) 04/26/19 08:00 Urine Protein Negative (NEGATIVE) 04/26/19 08:00 Urine Glucose (UA) Negative (NEGATIVE) 04/26/19 08:00 Urine Ketones Negative (NEGATIVE) 04/26/19 08:00 Urine Blood Negative (NEGATIVE) 04/26/19 08:00 Urine Nitrite Negative (NEGATIVE) 04/26/19 08:00 Urine Bilirubin Negative (NEGATIVE) 04/26/19 08:00 Urine Urobilinogen 0.2 mg/dL (0.2-1.0) 04/26/19 08:00 Ur Leukocyte Esterase Negative (NEGATIVE) 04/26/19 08:00 RPR Titer Nonreactive (NONREACTIVE) 04/25/19 07:25 lab noted Assessment: 04/27/19 15:17 opiate withdrawal 04/27/19 15:18 encourage picking up narcan from pharmacy upon discharge Plan: methadone regiment
[2019-04-27] MEDS: THIAMINE HCL 100 MG TABLET (FP) PO SCH (23:06)
[2019-04-28] MEDS ORDERED: METHADONE HCL 10 MG TABLET (FOR DETOX USE ONLY) PO ONE (10:00)
[2019-04-28] MEDS: PRENATAL VITAMINS W/ FOLIC ACID TABLET (FP) PO SCH (10:17)
[2019-04-28] MEDS: NICOTINE 14 MG/24 HOURS TOPICAL PATCH TD SCH (10:17)
--- NOTE | 2019-04-28 11:35 | PN ---
BHS COWS - Scale Resting Pulse: 1= [place] 81-100 Sweatin= Chills/Flushing Restless Observation: 0= Sits Still Pupil Size: 0= Normal to Room Light Bone or Joint Aches: 1= Mild Discomfort Runny Nose/ Eye Tearin= None GI Upset > 30mins: 0= None Tremor Observation of Outstretched Hands: 1= Tremor [place], Not Seen Yawning Observation: 0= None Anxiety or Irritability: 1=Feels Anxious/Irritable Goose Flesh Skin: 0=Smooth Skin COWS Score: 5 BHS Progress Note (SOAP) Subjective: 48 years old male admitted on 04/24/19 for opiate withdrawal sx management treating with methadone detox regiment requests to be seen by a psychiatrist that he is taking antipsychotic medication by history patient denies hallucination denies self harm ideation reality based behavior good eye contact Objective: 04/28/19 11:35 Vital Signs Temperature 98.7 F 04/28/19 08:59 Pulse Rate 81 04/28/19 08:59 Respiratory Rate 18 04/28/19 08:59 Blood Pressure 135/81 04/28/19 08:59 O2 Sat by Pulse Oximetry (%) Laboratory Last Values WBC 6.6 K/mm3 (4.0-10.0) 04/25/19 07:25 RBC 4.20 M/mm3 (4.00-5.60) 04/25/19 07:25 Hgb 12.5 GM/dL (11.7-16.9) 04/25/19 07:25 Hct 38.0 % (35.4-49) 04/25/19 07:25 MCV 90.4 fl (80-96) 04/25/19 07:25 MCH 29.7 pg (25.7-33.7) 04/25/19 07:25 MCHC 32.9 g/dl (32.0-35.9) 04/25/19 07:25 RDW 13.4 % (11.9-15.9) 04/25/19 07:25 Plt Count 192 K/MM3 (134-434) 04/25/19 07:25 MPV 10.1 fl (7.5-11.1) 04/25/19 07:25 Sodium 140 mmol/L (136-145) 04/25/19 07:25 Potassium 4.2 mmol/L (3.5-5.1) 04/25/19 07:25 Chloride 106 mmol/L (98-107) 04/25/19 07:25 Carbon Dioxide 28 mmol/L (21-32) 04/25/19 07:25 Anion Gap 7 MMOL/L (8-16) L 04/25/19 07:25 BUN 14.3 mg/dL (7-18) 04/25/19 07:25 Creatinine 0.7 mg/dL (0.55-1.3) 04/25/19 07:25 Est GFR (CKD-EPI)AfAm 130.25 04/25/19 07:25 Est GFR (CKD-EPI)NonAf 112.38 04/25/19 07:25 Random Glucose 110 mg/dL (74-106) H 04/25/19 07:25 Calcium 8.7 mg/dL (8.5-10.1) 04/25/19 07:25 Total Bilirubin 0.4 mg/dL (0.2-1) 04/25/19 07:25 AST 29 U/L (15-37) 04/25/19 07:25 ALT 47 U/L (13-61) 04/25/19 07:25 Alkaline Phosphatase 84 U/L (45-117) 04/25/19 07:25 Total Protein 6.6 g/dl (6.4-8.2) 04/25/19 07:25 Albumin 3.5 g/dl (3.4-5.0) 04/25/19 07:25 Urine Color Yellow 04/26/19 08:00 Urine Appearance Clear 04/26/19 08:00 Urine pH 8.5 (5.0-8.0) H 04/26/19 08:00 Ur Specific [place] 1.016 (1.010-1.035) 04/26/19 08:00 Urine Protein Negative (NEGATIVE) 04/26/19 08:00 Urine Glucose (UA) Negative (NEGATIVE) 04/26/19 08:00 Urine Ketones Negative (NEGATIVE) 04/26/19 08:00 Urine Blood Negative (NEGATIVE) 04/26/19 08:00 Urine Nitrite Negative (NEGATIVE) 04/26/19 08:00 Urine Bilirubin Negative (NEGATIVE) 04/26/19 08:00 Urine Urobilinogen 0.2 mg/dL (0.2-1.0) 04/26/19 08:00 Ur Leukocyte Esterase Negative (NEGATIVE) 04/26/19 08:00 RPR Titer Nonreactive (NONREACTIVE) 04/25/19 07:25 lab noted Assessment: 04/28/19 11:35 opiate withdrawal Plan: methadone regiment
--- NOTE | 2019-04-28 15:17 | CONSULT ---
[facility] Psychiatric Consult - Data Date of interview: 04/28/19 Admission source: [facility] Identifying data: Revisit to [facility] and admission to [address] [place] [address] for this 48 y/o AA male self-referred for detoxification treatment. MAARH issues : heroin, cocaine , nicotine. Patient is , father of three, domiciled, unemployed and suppoted on SSD benefits. Substance Abuse History: Discussed with patient. Details in current [facility] report as follows : Smoking history: Current every day smoker. Have you smoked in the past 12 months: Yes. Aproximately how many cigarettes per day: 2. Cigars Per Day: 0. Hx Chewing Tobacco Use: No. Initiated information on smoking cessation : Yes. 'Breaking Loose' booklet given: 04/24/19. - Substance & Tx. History. Hx Alcohol Use: No. Hx Substance Use: Yes. Substance Use Type: Cocaine, Heroin. Hx Substance Use Treatment: Yes ([facility]). - Substances abused. Heroin. Substance route: Inhalation. Frequency: Daily. Amount used: 10 BAGS. Age of first use: 26. Date of last use: 04/24/19 (10 BAGS). Cocaine. Substance route: Smoking. Frequency: 3-6 times per week (3X). Amount used: $ 40. Age of first use: 26. Date of last use: 04/23/19 Medical History: Remarkable for hepatitis C (treated). Psychiatric History: Patient endorses history of one psychiatric hospitalization in [place]. First psychiatric contact occurred in 1991 ( admitted to [facility] in [place], [place] due to hallucinations + delusions of persecution). Patient got diagnosed with Schizophrenia and started on antipsychotic medications. Has not been readmitted to Psychiatry since. However, Mr Hill reports multiple CPEP visits that concluded with discharges after a few hours of extended observation (substance-induced auditory hallucinations + suicidal ideation). Most recent CPEP evaluation was conduted at [facility] (10/21/18). Patient indicates that he has been medicated with haloperidol in the past. Admits to chronic non adherence to OPD care and medications. He reports seeing a psychiatrist (sometimes) at a mental health clinic " somewhere in the [place]." Patient denies history of suicide attempts. Physical/Sexual Abuse/Trauma History: Patient denies. Additional Comment: Urine drug screen results: DEVON-Cocaine, MOP-Opiates. Noted. Mental Status Exam - Mental Status Exam Alert and Oriented to: Time, Place, Person Cognitive Function: Good Patient Appearance: Well Groomed (tall stature) Mood: Hopeful, Euthymic Affect: Appropriate, Normal Range Patient Behavior: Appropriate, Cooperative Speech Pattern: Clear, Appropriate Voice Loudness: Normal Thought Process: Goal Oriented Thought Disorder: Not Present Hallucinations: Denies Suicidal Ideation: Denies Homicidal Ideation: Denies Insight/Judgement: Poor Sleep: Poorly, Difficulty falling asleep Appetite: Good Gait/Station: Normal Psychiatric Findings - Problem List ([place] 1, 2,3) (1) Opioid dependence with withdrawal Current Visit: Yes Status: Acute (2) Cocaine dependence, uncomplicated Current Visit: Yes Status: Chronic (3) Nicotine dependence Current Visit: Yes Status: Chronic Qualifiers: Nicotine product type: cigarettes Substance use status: uncomplicated Qualified Code(s): F17.210 - Nicotine dependence, cigarettes, uncomplicated (4) Substance induced mood disorder Current Visit: Yes Status: Chronic (5) History of schizophrenia Current Visit: Yes Status: Chronic (6) Insomnia Current Visit: Yes Status: Chronic (7) Non-compliance Current Visit: Yes Status: Chronic - Initial Treatment Plan Initial Treatment Plan: Psychoeducation. Sleep hygiene. Detoxification. Patient agrees to be on a " low dose " of seroquel. He indicates that he will not go above 50 mg at this time. Side effects/benefits discussed with the patient. Seroquel 50 mg po hs. Ordered at patient's specific request. Consent (verbal) given to MD. Bustamante.
[2019-04-28] MEDS: THIAMINE HCL 100 MG TABLET (FP) PO SCH (21:45)
[2019-04-28] MEDS ORDERED: QUEtiapine FUMARATE 50 MG TABLET PO SCH (22:00)
[2019-04-29] MEDS ORDERED: METHADONE HCL 5 MG TABLET (FOR DETOX USE ONLY) PO ONE (06:00)
--- NOTE | 2019-04-29 09:13 | DS ---
[facility] Detox Discharge Summary Admission Date: 04/24/19 Discharge Date: 04/29/19 - History Present History: Opioid Dependence Additional Comments: 48 years old male admitted on 04/24/19 for opiate withdrawal sx management treated with methadone detox regiment Mr Hill has completed the methadone regiment and tolerated well seen by psychiatrist resume seroquel alert oriented x 3 cardiac s1s2 regular rate rhythm ekg indicate left atrial enlargement respiratory clear lungs bilaterally on auscultation extremities full range of motion Pertinent Past History: time for discharge 38 minutes - Physical Exam Results Vital Signs: Vital Signs Temperature 97.2 F L 04/29/19 06:10 Pulse Rate 73 04/29/19 06:10 Respiratory Rate 18 04/29/19 06:30 Blood Pressure 123/80 04/29/19 06:10 O2 Sat by Pulse Oximetry (%) Pertinent Admission Physical Exam Findings: opiate withdrawal Laboratory Last Values WBC 6.6 K/mm3 (4.0-10.0) 04/25/19 07:25 RBC 4.20 M/mm3 (4.00-5.60) 04/25/19 07:25 Hgb 12.5 GM/dL (11.7-16.9) 04/25/19 07:25 Hct 38.0 % (35.4-49) 04/25/19 07:25 MCV 90.4 fl (80-96) 04/25/19 07:25 MCH 29.7 pg (25.7-33.7) 04/25/19 07:25 MCHC 32.9 g/dl (32.0-35.9) 04/25/19 07:25 RDW 13.4 % (11.9-15.9) 04/25/19 07:25 Plt Count 192 K/MM3 (134-434) 04/25/19 07:25 MPV 10.1 fl (7.5-11.1) 04/25/19 07:25 Sodium 140 mmol/L (136-145) 04/25/19 07:25 Potassium 4.2 mmol/L (3.5-5.1) 04/25/19 07:25 Chloride 106 mmol/L (98-107) 04/25/19 07:25 Carbon Dioxide 28 mmol/L (21-32) 04/25/19 07:25 Anion Gap 7 MMOL/L (8-16) L 04/25/19 07:25 BUN 14.3 mg/dL (7-18) 04/25/19 07:25 Creatinine 0.7 mg/dL (0.55-1.3) 04/25/19 07:25 Est GFR (CKD-EPI)AfAm 130.25 04/25/19 07:25 Est GFR (CKD-EPI)NonAf 112.38 04/25/19 07:25 Random Glucose 110 mg/dL (74-106) H 04/25/19 07:25 Calcium 8.7 mg/dL (8.5-10.1) 04/25/19 07:25 Total Bilirubin 0.4 mg/dL (0.2-1) 04/25/19 07:25 AST 29 U/L (15-37) 04/25/19 07:25 ALT 47 U/L (13-61) 04/25/19 07:25 Alkaline Phosphatase 84 U/L (45-117) 04/25/19 07:25 Total Protein 6.6 g/dl (6.4-8.2) 04/25/19 07:25 Albumin 3.5 g/dl (3.4-5.0) 04/25/19 07:25 Urine Color Yellow 04/26/19 08:00 Urine Appearance Clear 04/26/19 08:00 Urine pH 8.5 (5.0-8.0) H 04/26/19 08:00 Ur Specific [place] 1.016 (1.010-1.035) 04/26/19 08:00 Urine Protein Negative (NEGATIVE) 04/26/19 08:00 Urine Glucose (UA) Negative (NEGATIVE) 04/26/19 08:00 Urine Ketones Negative (NEGATIVE) 04/26/19 08:00 Urine Blood Negative (NEGATIVE) 04/26/19 08:00 Urine Nitrite Negative (NEGATIVE) 04/26/19 08:00 Urine Bilirubin Negative (NEGATIVE) 04/26/19 08:00 Urine Urobilinogen 0.2 mg/dL (0.2-1.0) 04/26/19 08:00 Ur Leukocyte Esterase Negative (NEGATIVE) 04/26/19 08:00 RPR Titer Nonreactive (NONREACTIVE) 04/25/19 07:25 lab noted - Treatment Hospital Course: Detox Protocol Followed, Detoxed Safely, Responded well, Discharged Condition Good, Rehab Referral Accepted Patient has Accepted a Rehab Referral to: [facility] - Medication Discharge Medications: Ambulatory Orders Naloxone HCl [Narcan] 4 mg NS ASDIR PRN #1 spray 04/27/19 - Diagnosis (1) Opioid dependence with withdrawal Status: Acute (2) Diabetes mellitus type II, controlled, with no complications Status: Chronic Qualifiers: Diabetes mellitus terminal operations manager insulin use: without terminal operations manager use Qualified Code(s): E11.9 - Type 2 diabetes mellitus without complications (3) History of hepatitis C Status: Chronic (4) Nicotine dependence Status: Acute Qualifiers: Nicotine product type: cigarettes Substance use status: in withdrawal Qualified Code(s): F17.213 - Nicotine dependence, cigarettes, with withdrawal (5) Obesity (BMI 30.0-34.9) Status: Chronic (6) Substance induced mood disorder Status: Suspected - AMA Did Patient Leave Against Medical Advice: No COWS (PN) - Opiate Withdrawal Resting Pulse: 0= TN 80 or Below Sweatin= No chills or Flushing Restless Observation: 0= Sits Still Pupil Size: 0= Normal to Room Light Bone or Joint Aches: 1= Mild Discomfort Runny Nose/ Eye Tearin= None GI Upset > 30mins: 1= Stomach Cramp Tremor Observation of Outstretched Hands: 1= Tremor [place], Not Seen Yawning Observation: 0= None Anxiety or Irritability: 0= None Goose Flesh Skin: 0=Smooth Skin COWS Score: 3
[2019-04-29 09:25] VITALS: BP 128/89; PULSE 94; TEMP 98.9
== END 2019-04-29 09:45 | disposition home or self-care (01) | DRG 773 ==
LOC: YASAS 20:14 → Y3N 22:01
PROVIDERS: ADMIT Allergy & Immunology; ATTEND Allergy & Immunology
PROC: HZ2ZZZZ Detoxification Services for Substance Abuse Treatment (ICD-10-PCS; principal; 2019-04-24)
DX: F11.23 Opioid dependence with withdrawal (principal); F14.20 Cocaine dependence, uncomplicated; F17.213 Nicotine dependence, cigarettes, with withdrawal; F19.282 Other psychoactive substance dependence with psychoactive substance-induced sleep disorder; E11.9 Type 2 diabetes mellitus without complications; G47.00 Insomnia, unspecified; E66.9 Obesity, unspecified; Z68.30 Body mass index [BMI] 30.0-30.9, adult; Z91.14 Patient's other noncompliance with medication regimen; Z86.19 Personal history of other infectious and parasitic diseases; Z86.59 Personal history of other mental and behavioral disorders
CPT/HCPCS: 36415; 80053; 81003; 85027; 86593; 93005; 93010; J0735

== ENCOUNTER 2021-06-20 12:03 | Inpatient (IN) | payer OTHER ==
[2021-06-20 16:35] LABS: BASO % 0.2 % (0-2.0); EOS % 2.1 % (0-4.5); HEMATOCRIT 31.2 % (35.4-49); HEMOGLOBIN 10.3 GM/dL (11.7-16.9); MCH 30.1 pg (25.7-33.7); MCHC 33.1 g/dl (32.0-35.9); NEUT % 73.7 % (42.8-82.8); PLATELET COUNT 233 10^3/uL (134-434); RBC 3.42 M/mm3 (4.00-5.60); RDW 13.2 % (11.9-15.9); WHITE BLOOD COUNT 10.6 K/mm3 (4.0-10.0)
[2021-06-20 17:08] LABS: CALCIUM 8.4 mg/dL (8.5-10.1)
[2021-06-20 17:09] LABS: ALBUMIN 2.5 g/dl (3.4-5.0); BLOOD UREA NITROGEN 19.6 mg/dL (7-18)
[2021-06-20 17:12] LABS: CREATININE 0.8 mg/dL (0.55-1.3)
[2021-06-20 17:14] LABS: BILIRUBIN,TOTAL 0.2 mg/dL (0.2-1)
[2021-06-20] MEDS ORDERED: DALBAVANCIN HCL 1,500 MG in DEXTROSE 5%-WATER - 500 ML IVPB ONE (17:52)
[2021-06-20] MEDS ORDERED: VANCOMYCIN 1 GM in D5W (PRE-DOCKED) 1,000 MG/250 ML IVPB ONE (18:12)
[2021-06-20] MEDS ORDERED: PIPERACILLIN/TAZOB 3.375 GM 3.375 GM in DEXTROSE 5%-WATER - 50 ML IVPB ONE (18:12)
[2021-06-20] MEDS ORDERED: PIPERACILLIN/TAZOB 3.375 GM 3.375 GM/50 ML BAG IVPB ONE (18:25)
[2021-06-20] MEDS ORDERED: VANCOMYCIN 1 GRAM (PRE-DOCKED) 1,000 MG/250 ML BAG IVPB ONE (18:41)
[2021-06-20] MEDS ORDERED: ACETAMINOPHEN 325 MG TABLET (FP) PO PRN (22:26)
[2021-06-20] MEDS ORDERED: ONDANSETRON 4 MG/2 ML VIAL IVPUSH PRN (22:29)
[2021-06-20] MEDS ORDERED: cloNIDine HCL 0.1 MG TABLET PO PRN (22:40)
[2021-06-20] MEDS ORDERED: VANCOMYCIN 1 GM in D5W (PRE-DOCKED) 1,000 MG/250 ML IVPB SCH (22:45)
[2021-06-20] MEDS ORDERED: methaDONE HCL 10 MG TABLET PO ONE (23:00)
[2021-06-21] MEDS ORDERED: methaDONE HCL 10 MG TABLET ONE ×2 (00:40→09:18)
[2021-06-21 04:03] VITALS: BMI 22.5
[2021-06-21] MEDS ORDERED: VANCOMYCIN 1 GM/200 ML PREMIX BAG IVPB SCH (07:00)
[2021-06-21 08:42] LABS: BASO % 0.3 % (0-2.0); EOS % 4.7 % (0-4.5); HEMATOCRIT 28.6 % (35.4-49); HEMOGLOBIN 9.7 GM/dL (11.7-16.9); LYMPH % 19.1 % (8-40); MCH 30.3 pg (25.7-33.7); MCHC 33.7 g/dl (32.0-35.9); MEAN CELL VOLUME 89.9 fl (80-96); MEAN PLT VOLUME 8.3 fl (7.5-11.1); MONO % 10.6 % (3.8-10.2); NEUT % 65.3 % (42.8-82.8); PLATELET COUNT 232 10^3/uL (134-434); RBC 3.19 M/mm3 (4.00-5.60); RDW 13.4 % (11.9-15.9); WHITE BLOOD COUNT 8.2 K/mm3 (4.0-10.0)
[2021-06-21 08:54] LABS: CALCIUM 8.2 mg/dL (8.5-10.1)
[2021-06-21 08:55] LABS: BLOOD UREA NITROGEN 12.5 mg/dL (7-18); MAGNESIUM 2.2 mg/dL (1.8-2.4)
[2021-06-21 08:58] LABS: CREATININE 0.6 mg/dL (0.55-1.3); PHOSPHOROUS 3.1 mg/dL (2.5-4.9)
[2021-06-21 08:59] LABS: BILIRUBIN,TOTAL 0.3 mg/dL (0.2-1); TOT PROT 5.9 g/dl (6.4-8.2)
[2021-06-21] MEDS: ENOXAPARIN NA (PORCINE) 40 MG/0.4 ML DISP.SYRIN SQ SCH (09:26)
[2021-06-21 09:54] LABS: PH,URINE 8.5 (5.0-8.0); URINE APPEARANCE CLEAR; URINE BILIRUBIN NEGATIVE (NEGATIVE); URINE COLOR YELLOW; URINE GLUCOSE (UA) NEGATIVE (NEGATIVE); URINE KETONE NEGATIVE (NEGATIVE); URINE LEUK ESTERASE NEGATIVE (NEGATIVE); URINE NITRITE NEGATIVE (NEGATIVE); URINE PROTEIN NEGATIVE (NEGATIVE)
[2021-06-21 10:18] LABS: PHENCYCLIDINE,URINE NEGATIVE (NEGATIVE); URINE BENZODIAZEPINES NEGATIVE (NEGATIVE)
[2021-06-21 10:19] LABS: METHADONE, UR NEGATIVE (NEGATIVE)
[2021-06-21 10:23] LABS: COCAINE, UR POSITIVE (NEGATIVE); OPIATES, URI POSITIVE (NEGATIVE); URINE AMPHETAMINES NEGATIVE (NEGATIVE); URINE BARBITURATES NEGATIVE (NEGATIVE)
[2021-06-21] MEDS ORDERED: DEXTROSE 5%-WATER - 50 ML IVPB ONE ×2 (13:17→16:50)
[2021-06-21] MEDS ORDERED: PIPERACILLIN/TAZOBACTAM 3.375 GM VIAL IVPB ONE ×2 (13:17→16:50)
[2021-06-21] MEDS: PIPERACILLIN/TAZOB 3.375 GM 3.375 GM in DEXTROSE 5%-WATER - 50 ML IVPB SCH ×2 (13:45→17:28)
[2021-06-21] MEDS ORDERED: VANCOMYCIN/WATER FOR INJ (PEG) 1,000 MG/200 ML BAG IVPB SCH (18:00)
[2021-06-22] MEDS ORDERED: PIPERACILLIN/TAZOBACTAM 3.375 GM VIAL IVPB ONE ×2 (01:29→09:11)
[2021-06-22] MEDS: PIPERACILLIN/TAZOB 3.375 GM 3.375 GM in DEXTROSE 5%-WATER - 50 ML IVPB SCH ×2 (02:47→09:13)
[2021-06-22 08:31] LABS: BASO % 1.1 % (0-2.0); EOS % 4.6 % (0-4.5); HEMOGLOBIN 10.5 GM/dL (11.7-16.9); LYMPH % 26.4 % (8-40); MCH 29.7 pg (25.7-33.7); MCHC 32.9 g/dl (32.0-35.9); MEAN CELL VOLUME 90.4 fl (80-96); MEAN PLT VOLUME 8.7 fl (7.5-11.1); MONO % 11.2 % (3.8-10.2); NEUT % 56.7 % (42.8-82.8); PLATELET COUNT 270 10^3/uL (134-434); RBC 3.55 M/mm3 (4.00-5.60); WHITE BLOOD COUNT 8.7 K/mm3 (4.0-10.0)
[2021-06-22 08:48] LABS: CALCIUM 8.4 mg/dL (8.5-10.1)
[2021-06-22 08:49] LABS: ALBUMIN 2.2 g/dl (3.4-5.0); BLOOD UREA NITROGEN 12.3 mg/dL (7-18)
[2021-06-22 08:52] LABS: CREATININE 0.7 mg/dL (0.55-1.3)
[2021-06-22 08:53] LABS: TOT PROT 6.7 g/dl (6.4-8.2)
[2021-06-22 08:54] LABS: BILIRUBIN,TOTAL 0.3 mg/dL (0.2-1)
[2021-06-22] MEDS ORDERED: DEXTROSE 5%-WATER - 50 ML IVPB ONE (09:11)
[2021-06-22] MEDS: ENOXAPARIN NA (PORCINE) 40 MG/0.4 ML DISP.SYRIN SQ SCH (09:13)
[2021-06-22] MEDS ORDERED: methaDONE HCL 10 MG TABLET PO ONE (10:00)
[2021-06-22 14:21] VITALS: BP 125/80; PULSE 72; TEMP 97.7
[2021-06-24] MEDS ORDERED: methaDONE HCL 10 MG TABLET PO ONE (10:00)
== END 2021-06-22 15:45 | disposition left against medical advice (07) | DRG 603 ==
LOC: JER 12:03 → JERBED 18:11 → J6S 06-21 01:04
PROVIDERS: ADMIT Internal Medicine
DX: L03.116 Cellulitis of left lower limb (principal); F11.20 Opioid dependence, uncomplicated; E11.9 Type 2 diabetes mellitus without complications; F20.9 Schizophrenia, unspecified; M71.21 Synovial cyst of popliteal space [Baker], right knee; D64.9 Anemia, unspecified; F17.200 Nicotine dependence, unspecified, uncomplicated
CPT/HCPCS: 36415; 80053; 80061; 80307; 81003; 82728; 83036; 83540; 83550; 83735; 84100; 84443; 85025; 85045; 87040; 87070; 87077; 87205; 93005; 93010; 93970-TC; 97116-GP; 97161-GP; 99285-25; C9803-CS; U0003; U0005